=== PATIENT | male | born 1935 | race Caucasian/White ===

== ENCOUNTER 2016-10-29 11:51 | Outpatient (CLI) | payer OTHER | END 2016-10-29 11:52 | LOC: CARD 11:51 | PROVIDERS: ATTEND Internal Medicine Cardiovascular Disease | DX: I25.10 Atherosclerotic heart disease of native coronary artery without angina pectoris (principal); I10 Essential (primary) hypertension; E78.5 Hyperlipidemia, unspecified; I48.91 Unspecified atrial fibrillation; Z95.810 Presence of automatic (implantable) cardiac defibrillator | CPT/HCPCS: G0463 ==

== ENCOUNTER 2016-12-03 14:42 | Outpatient (CLI) | payer OTHER | END 2016-12-03 14:43 | LOC: CARD 14:42 | PROVIDERS: ATTEND Internal Medicine Cardiovascular Disease | DX: I25.10 Atherosclerotic heart disease of native coronary artery without angina pectoris (principal); I10 Essential (primary) hypertension; E78.5 Hyperlipidemia, unspecified; Z79.899 Other long term (current) drug therapy | CPT/HCPCS: G0463 ==

== ENCOUNTER 2016-12-17 15:28 | Outpatient (CLI) | payer OTHER ==
[2016-12-17 15:48] LABS: MEAN CORPUSCULAR HEMOGLOBIN 28.8 pg (28.0-34.0)
[2016-12-17 16:21] LABS: eGFR (African) 37; eGFR (Non-African) 31
[2016-12-17 16:25] LABS: SEGMENTED NEUTROPHILS % 62 % (39-79)
[2016-12-17 16:26] LABS: BASOPHILS % 2 % (0-2); MONOCYTES % 2 % (0-11)
[2016-12-19 08:04] LABS: ADENOVIRUS F 40/41 Not Detected (Not Detected); ASTROVIRUS Not Detected (Not Detected); C. DIFFICILE (TOXIN A/B) Not Detected (Not Detected); CRYPTOSPORIDIUM Not Detected (Not Detected); CYCLOSPORA CAYETANENSIS Not Detected (Not Detected); ENTAMOEBA HISTOLYTICA Not Detected (Not Detected); GIARDIA LAMBLIA Not Detected (Not Detected); ROTAVIRUS A Not Detected (Not Detected); SAPOVIRUS Not Detected (Not Detected); VIBRIO CHOLERAE Not Detected (Not Detected)
== END 2016-12-17 15:30 ==
LOC: LAB 15:28
PROVIDERS: ATTEND Physician Assistant
DX: R19.7 Diarrhea, unspecified (principal)
CPT/HCPCS: 36415; 80053; 85025; 87507

== ENCOUNTER 2017-01-15 11:56 | Outpatient (CLI) | payer OTHER ==
[2017-01-15 12:37] LABS: eGFR (African) 44; eGFR (Non-African) 37
== END 2017-01-15 12:05 ==
LOC: LAB 11:56
DX: E78.00 Pure hypercholesterolemia, unspecified (principal); Z51.81 Encounter for therapeutic drug level monitoring
CPT/HCPCS: 36415; 80053; 80061; 80162

== ENCOUNTER 2017-12-09 12:30 | Outpatient (CLI) | payer OTHER ==
[2017-10-01 18:19] VITALS: BP 114/68
== END 2017-12-09 12:32 ==
LOC: CARD 12:30
PROVIDERS: ATTEND Internal Medicine Cardiovascular Disease
DX: I25.10 Atherosclerotic heart disease of native coronary artery without angina pectoris (principal); Z95.2 Presence of prosthetic heart valve; I10 Essential (primary) hypertension; E78.00 Pure hypercholesterolemia, unspecified; Z79.899 Other long term (current) drug therapy; Z86.79 Personal history of other diseases of the circulatory system
CPT/HCPCS: 36415; 84443; G0463

== ENCOUNTER 2018-03-17 08:39 | Outpatient (CLI) | payer OTHER ==
[2017-10-01 18:19] VITALS: BP 114/68
[2018-03-17 09:24] LABS: BASOPHILS % 0.5 (0.0-1.5); EOSINOPHILS % 0.9 % (0.0-6.8); MEAN CORPUSCULAR HEMOGLOBIN 26.7 pg (28.0-34.0); MEAN CORPUSCULAR VOLUME 86.6 fl (80.0-100.0); MONOCYTES % 5.9 % (0.0-11.0); NEUTROPHILS # 3.5 # k/uL (1.4-7.7)
[2018-03-17 09:54] LABS: eGFR (African) > 60; eGFR (Non-African) 56
--- NOTE | 2018-03-17 10:37 | Diagnostic Imaging Report ---
VICKIE RODARTE [facility] [address] [facility].[address] [address] Report Submission Date: Mar 17, 2018 10:22:54 AM CDT Patient Study Name: ALEXANDREA QUESADA Date: Mar 17, 2018 9:18:35 AM CDT Modality Type: US Gender: M Description: BLEA : 39 Institution: [facility] Physician: VICKIE RODARTE Examination: Ultrasound arterial History: ARTERIAL DISEASE Comparison exams: None available Findings: Sonographic evaluation of the lower extremity arterial system from the groin to the distal extremities bilaterally demonstrates normal biphasic and triphasic waveforms. Peak right arterial systolic velocity of 80.9 cm/s. Peak left arterial systolic velocity of 99,2 cm/s. Impression No reduction to hemodynamic flow. No evidence for occlusive plaque. Electronically signed on Mar 17, 2018 10:22:54 AM CDT by: Yuval BRITTON
--- NOTE | 2018-03-17 10:38 | Diagnostic Imaging Report ---
VICKIE RODARTE [facility] [address] [facility].[address] [address] Report Submission Date: Mar 17, 2018 10:26:43 AM CDT Patient Study Name: ALEXANDREA QUESADA Date: Mar 17, 2018 10:04:23 AM CDT Modality Type: DX Gender: M Description: LOWER EXTREMITY : 37 Institution: [facility] Physician: VICKIE RODARTE Examination: Plain film left foot History: OSTEOMYELITIS; INJURY TO 2ND DIGIT ON LEFT FOOT (Hx) Findings: 3 views of the left foot demonstrates generalized osteopenia. Articular degenerative changes. Foreshortening/resorption of the distal aspect of the proximal phalanx 2nd digit. Calcaneal spurs. No soft tissue swelling. No joint effusion. Impression: Osteopenia and degenerative changes. 2nd digit posttraumatic versus postsurgical versus infections etiology. If suspect osteomyelitis, consider obtaining MRI to further evaluate. Electronically signed on Mar 17, 2018 10:26:43 AM CDT by: Yuval BRITTON
== END 2018-03-17 08:40 ==
LOC: RAD 08:39
PROVIDERS: ATTEND Podiatrist Foot & Ankle Surgery
DX: L03.039 Cellulitis of unspecified toe (principal); M20.42 Other hammer toe(s) (acquired), left foot; S91.109A Unspecified open wound of unspecified toe(s) without damage to nail, initial encounter; I73.9 Peripheral vascular disease, unspecified
CPT/HCPCS: 36415; 73630; 80053; 85025; 85651; 86141; 93925

== ENCOUNTER 2018-04-27 13:51 | Outpatient (CLI) | payer OTHER ==
[2017-10-01 18:19] VITALS: BP 114/68
--- NOTE | 2018-04-28 08:12 | OP Clinic Progress Note ---
SUBJECTIVE: Chacho Peterson is an 83-year-old male who was seen today for follow up of a left 2nd toe wound. The patient was seen just over 2 weeks ago and had evidence of a healed wound with very fragile healing skin that had epithelized at that time. He was seen today to make sure that this was continuing to stay healed. Patient presented with a worker from the facility he is from. The patient is also here to discuss results of the recent [facility] white blood cell labeled bone scan. The patient expresses frustration with how much time the exam took and is anxious to know what the results are at this time. The patient states that he has run out of/lost the toe pads that he was using previously for his left 2nd toe to protect it. He is now utilizing a shoe that he has at home that is his. This is not a surgical shoe. The patient does not admit to any fevers, chills, nausea, vomiting, shortness of breath, or chest pain at this time. The patient is wanting to discuss possible surgical options. OBJECTIVE: Vascular Exam: Palpable DP and PT pulses of the left foot. Capillary refill time was less than 3 seconds to the toes of the left foot. No edema of the left foot. Musculoskeletal Exam: No pain on palpation noted to the left foot or toes. There is obvious dorsal contracture at the metatarsophalangeal joint of the 2nd and 3rd toes with plantar flexion deformity noted at the distal interphalangeal joint of the 2nd and 4th toes and slight plantar flexion contracture at the left 2nd, 3rd, and 4th toes with the forefoot loaded. The DIPJ is fairly rigid with inability to reduce with the forefoot loaded at the 2nd and 4th toes where the significant contraction is noted. He is also unable to reduce completely with the forefoot loaded at the 2nd metatarsophalangeal joint. It should be noted that the 3rd and 4th toes underride the 2nd and 3rd toes with some adductovarus deformity of the 5th toe being minimal. The patient also has hallux abducto valgus deformity of the left great toe, which is underriding the 2nd toe. No other gross abnormalities noted at this time. Dermatologic Exam: Left 2nd toe dorsal DIPJ wound is stilled healed with no evidence of hyperkeratosis or open wound. It is healing beautifully and has very minimal redness underneath the slightly fragile skin where the healing is continuing. This wound has healed completely and is continuing to do well. There is no erythema or open lesions elsewhere. There is no hyperkeratosis or open lesion on the other toes at this time. Neurological Exam: Light touch sensation is absent at the level of the toes of the left foot. DIAGNOSTIC STUDIES: The results of the white blood cell labeled bone scan were discussed with the patient. The patient understood as I explained that the preliminary results were concerning for osteomyelitis to the left 2nd toe; however, the final results of the white blood cell labeled scan demonstrated no evidence of osteomyelitis in the left 2nd toe. The patient is thrilled to know this information and understands that I am still slightly concerned that not all tests are accurate and that there is a small possibility that there is infection in the bone but that we will trust that the exam, which is a great exam for checking osteomyelitis, is accurate at this time. The patient is happy with this at this time. ASSESSMENT: Left 2nd toe wound, healed. PLAN: A long discussion was had with the patient discussing going forward with conservative treatment with padding and protection and occasional debridement of callus as needed to the left 2nd toe versus surgical correction with hammertoe procedure. Further discussion was had regarding the need to do more than just a hammertoe procedure of the 2nd toe but also a bunion procedure of the 1st metatarsophalangeal joint, as well as hammertoes of the 3rd and 4th and possibly 5th toes, as all of the toes are in the way of each other, being able to bring down the 2nd toe. The patient understands that this is likely what needs to happen, and we discussed some of the details of surgery but more can be discussed at a later time. The patient was sent to the [facility] to bead picker some more toe pads for his left 2nd toe to use at home and a note was given to take back to the facility he is at to make sure that he is wearing the toe pads at all times on that left 2nd toe to protect it. The patient will return to the clinic in 3 weeks to discuss further possible surgical correction of the bunion, as well as hammertoes 2, 3, 4 and possibly 5, some of which will include DIPJ and some proximal interphalangeal joint and some metatarsophalangeal joint correction. A more detailed exam will also be described at the upcoming appointment if we are to prepare for surgery. The patient understands that we are working on trying to gather the rest of the materials we need at the hospital in order to be able to do surgery and a few weeks will help us make sure that his toe is well healed and that it buys us appropriate time to gather what we need to. The patient has no other questions or concerns at this time and is grateful for the results and discussion about surgical versus conservative plan. The patient states specifically that he is leaning towards the surgical plan at this time and we will discuss it further at our next appointment. There was no procedure done on this patient. cc: Dr. Peyman BRITTON
== END 2018-04-27 13:53 ==
LOC: POD 13:51
PROVIDERS: ATTEND Podiatrist Foot & Ankle Surgery
DX: S91.105A Unspecified open wound of left lesser toe(s) without damage to nail, initial encounter (principal); X58.XXXA Exposure to other specified factors, initial encounter; Y93.9 Activity, unspecified; Y92.9 Unspecified place or not applicable; Y99.9 Unspecified external cause status
CPT/HCPCS: 99213; G0463

== ENCOUNTER 2018-09-30 08:56 | Inpatient (IN) | payer OTHER ==
[2018-09-30] MEDS ORDERED: IPRATROPIUM/ALBUTEROL SULFATE 3 ML AMPUL.NEB NEB STA (09:03)
--- NOTE | 2018-09-30 09:14 | ED Physician Documentation ---
Dyspnea - HISTORIAN Historian: patient - HPI Chief Complaint: Wheezing Onset: hours Duration: continues in ED Initiating Event: upper respiratory illness Severity: moderate Exacerbated By: coughing Further Comments: yes (83 year old male patient sent in from [place] with Sat of 68% on 4L this morning. Staff reports increased SOB and cough for the past few days; worse this morning. Patient finished Ceftin on 09/24/2018. Patient is a poor historian. Difficult to assess onset of symptoms. Likely more than 48 hours ago. Low saturations onset today.) - ROS CONST: recent illness (ceftin completed 09/24), weakness EYES/ENT: none GI/: none NEURO/PSYCH: denies: headache MS/SKIN/LYMPH: none - PAST HX Lung Disease: none Cardiac Disease: CAD, A-Fib, other (HLD) Surgeries/Procedures: other (PPM, cataract, PCI with stent, Right hip replacement, Total knee - right) Other History: other (BPH, GERD, CKD, OA, on Eliquis for AFib) Allergies/Adverse Reactions: Allergies Allergy/AdvReac Type Severity Reaction Status Date / Time No Known Drug Allergies Allergy Verified 09/30/18 11:12 Home Medications: Ambulatory Orders Medication Instructions Recorded Polyethylene Glycol 3350 [Miralax] 17 gm PO D 10/01/17 Acetaminophen [Tylenol] 650 mg PO Q6H PRN 09/30/18 Ibuprofen [Ibu] 400 mg PO TID 09/30/18 Latanoprost/Pf [Latanoprost 0.005% 1 drop OP HS 09/30/18 Eye Drop] Mag Hydrox/Aluminum Hyd/Simeth 30 ml PO D PRN 09/30/18 [Mylanta] Magnesium Hydroxide [Milk of 2,400 mg PO D PRN 09/30/18 Magnesia] Nitroglycerin [Nitrostat] 0.3 mg SL Q5M PRN 09/30/18 - SOCIAL HX Smoking History: non-smoker - FAMILY HX Family History: denies: none - VITAL SIGNS Vital Signs: Vital Signs Temp Pulse Resp BP Pulse Ox 114/68 10/01/17 18:18 - REVIEWED ASSESSMENTS Nursing Assessment Reviewed: Yes Vitals Reviewed: Yes Progress - Progress Progress: Lab and xray results reviewed with patient. Positive for influenza. Chest xray with right LL pneumonia and early LLL pneumonia. CrCl 53 - levaquin started. [address] Garcia, will admit to med surg. Repeat lab and chest xray in the morning. ED Results Lab/Radiology - Orders Orders: ED Orders Category Date Time Status Place IV Lock 1T Care 09/30/18 09:02 Active CHEST 1VIEW [RAD] Stat Exams 09/30/18 09:02 Ordered CBC/PLATELET/DIFF Stat Lab 09/30/18 09:02 Ordered CMP Stat Lab 09/30/18 09:02 Ordered INFLUENZA A&B Stat Lab 09/30/18 09:08 Uncollected LACTATE Stat Lab 09/30/18 09:02 Ordered UA W/MICRO IF INDICATED Stat Lab 09/30/18 09:02 Ordered Ipratropium/Albuterol Sulfate [Duoneb] Med 09/30/18 09:03 Discontinued 3 ml NEB STAT STA Dyspnea Physical Exam - EXAM General Appearance: moderate distress EENT: eye inspection normal, ENT inspection normal, pharynx normal, no signs of dehydration, DUNCAN, no nystagmus, TM's nml Respiratory: no pain on inspiration, accessory muscle use, decreased air movement (bases; right lower lobe worse than left. ) CVS: reg. rate & rhythm, no murmur, no gallop, no friction rub, pulses full, pulses equal Abdomen: non-tender, no organomegaly, no distention, no ascites Skin: no rash, pallor, warm, nml palp., dry Extremities: non-tender, normal range of motion, no evidence of injury, no edema, J, LOOP CUTTER Neuro/Psych: oriented x3, CN's nml as tested, motor nml, sensation nml, mood/affect nml Discharge Clincal Impression: Influenza B, Elevated LFTs Right lower lobe pneumonia Qualifiers: Pneumonia type: due to unspecified organism Qualified Code(s): J18.1 - Lobar pneumonia, unspecified organism Left lower lobe pneumonia Qualifiers: Pneumonia type: due to unspecified organism Qualified Code(s): J18.1 - Lobar pneumonia, unspecified organism Anemia Qualifiers: Anemia type: unspecified type Qualified Code(s): D64.9 - Anemia, unspecified Condition: Stable Disposition: 01 HOME, SELF-CARE Decision to Admit: NO Decision Time: 13:10
[2018-09-30 09:25] LABS: BASOPHILS % 0.4 (0.0-1.5); EOSINOPHILS % 2.1 % (0.0-6.8); MEAN CORPUSCULAR HEMOGLOBIN 21.1 pg (28.0-34.0); MONOCYTES % 5.6 % (0.0-11.0); NEUTROPHILS # 14.6 # k/uL (1.4-7.7)
[2018-09-30 09:31] LABS: eGFR (Non-African) > 60
[2018-09-30] MEDS ORDERED: LEVOFLOXACIN IN DEXTROSE 5 % 250 MG/50 ML BAG IV ONE (10:04)
[2018-09-30] MEDS ORDERED: LEVOFLOXACIN IN DEXTROSE 5 % 500 MG/100 ML BAG IV ONE (10:04)
[2018-09-30 10:26] LABS: COLOR,URINE YELLOW (YELLOW)
[2018-09-30 10:27] LABS: APPEARANCE,URINE CLOUDY (CLEAR); OCCULT BLOOD,URINE 2+ (NEGATIVE)
[2018-09-30 13:44] VITALS: BMI 25.5
--- NOTE | 2018-09-30 14:05 | Diagnostic Imaging Report ---
SHILA RUEDA (TRUCK DISPATCHER) - ER [facility] [address] [facility].[address] [address] Report Submission Date: Sep 30, 2018 9:59:54 AM DIP STAND LOADER Patient Study Name: ALEXANDREA QUESADA Date: Sep 30, 2018 9:12:31 AM DIP STAND LOADER Modality Type: DX Gender: M Description: CHEST 1VIEW : 39 Institution: [facility] Physician: SHILA RUEDA (TRUCK DISPATCHER) - ER Examination: Portable chest History: Evaluate lungs SOA, COUGH Comparison exam: None provided. Findings: Single view of the chest demonstrates a prominent cardiac silhouette. Bilateral parenchymal haziness, right greater than left. Blunting of the bases. Left-sided cardiac pacemaker. Advanced articular degenerative changes. Impression: Right and left parenchymal haziness and basilar effusions. Electronically signed on Sep 30, 2018 9:59:54 AM DIP STAND LOADER by: Yuval BRITTON
[2018-09-30] MEDS: IPRATROPIUM/ALBUTEROL SULFATE 3 ML AMPUL.NEB NEB SCH ×3 (14:10→20:12)
[2018-09-30] MEDS ORDERED: MAGNESIUM HYDROXIDE 2,400 MG/30 ML UDC PO PRN (14:56)
[2018-09-30] MEDS ORDERED: MAG HYDROX/ALUMINUM HYD/SIMETH 30 ML UDC PO PRN (14:56)
[2018-09-30] MEDS: AMIODARONE HCL 200 MG TABLET PO SCH (15:53)
[2018-09-30] MEDS ORDERED: IBUPROFEN 200MG/10ML ORAL SUSPENSION CUP PO PRN (18:07)
[2018-09-30] MEDS ORDERED: NITROGLYCERIN 0.4 MG TAB.SUBL SL PRN (18:08)
--- NOTE | 2018-09-30 18:14 | History and Physical Report ---
History of Present Illnes - History of Present Illness Reason for Visit: dyspnea History of Present Illness: Patient is and 83-year-old white male who states he is not been doing well for some time. Patient did is been having increasing breathing difficulties also does not have a history of COPD or asthma. Over the last 3 to 4 days breathing has become a lot worse. Patient started developed some congestion and cough. Patient was noted to have a fever associated with some chills. Patient jackson bsequently seen in the ED. In the ED patient was found to have influenza B with probable exacerbation of COPD with bronchitis. Patient is also noted to be anemic with the hemoglobin of 7.9. He stool guaic done on admission on the floor was positive. Patient does have a history of atrial fibrillation and has been on eloquence for anticoagulation therapy. Patient also has osteoarthritis and has been taking nonsteroidal anti-inflammatory medication for this. Patient was admitted to the hospital for further care and evaluation. - Past Medical History Cardiac: AFIB, CAD, Hyperlipidemia Gastrointestinal: GERD Rheumatologic: Gout Renal/: Chronic renal failure (stage 4) - Past Surgical History Past Surgical History: Cataract Removal, Total Hip Replacement (right), Total Knee Replacement (right), Tonsillectomy, Other (PCI w stent, pacemaker p lacement, ) - Past Family History Mother Family History: (84yo), Other (advanced age) Father Family History: Cancer, (81), Other (COPD) - Past Social History Smoke: # pack years (50), Quit (>5 years) Alcohol: None Drugs: None Lives: Residential ([facility]) Domestic Violence: Negative - Health Maintenance Health Maintenance: Influenza Vaccine. denies: Pneumococcal Vaccine Influenza Vaccine: Current for this Influenza Season Pneumonia Vaccine: No Resuscitation Status: Resusciation Status Resuscitation Status Do Not Resuscitate - Unable to Obtain History Unable to Obtain: No Review of Systems - Review of Systems Constitutional: Fever, Chills, Weakness Eyes: negative: pain, vision change, conjunctivae inflammation ENT: negative: Ear Pain, Ear Discharge, Nose Pain, Nose Discharge, Nose Congestion, Mouth Pain, Throat Pain Respiratory: Cough, Dry, Shortness of Breath, SOB with Excertion. negative: Pleuritic Pain Cardiovascular: Paroxysmal Noc. Dyspnea, Edema. negative: Chest Pain, Palpitations, Orthopnea Gastrointestinal: Constipation. negative: Nausea, Vomiting, Abdominal Pain, Diarrhea, Melena, Hematochezia Genitourinary: Retention (? some diffuculties with urination). negative: Dysuria, Frequency, Incontinence Musculoskeletal: negative: Neck Pain, Shoulder Pain Skin: negative: Rash, Lesions Neurological: negative: Weakness, Numbness, Incoordination - Medications/Allergies Allergies/Adverse Reactions: Allergies Allergy/AdvReac Type Severity Reaction Status Date / Time No Known Drug Allergies Allergy Verified 09/30/18 11:12 Home Medications: Home Medications Acetaminophen [Tylenol] 650 mg PO Q6H PRN 09/30/18 Ibuprofen [Ibu] 400 mg PO TID 09/30/18 Latanoprost/Pf [Latanoprost 0.005% Eye Drop] 1 drop OP HS 09/30/18 Mag Hydrox/Aluminum Hyd/Simeth [Mylanta] 30 ml PO D PRN 09/30/18 Magnesium Hydroxide [Milk of Magnesia] 2,400 mg PO D PRN 09/30/18 Nitroglycerin [Nitrostat] 0.3 mg SL Q5M PRN 09/30/18 Current Inpatient Medications: Current Inpatient Medications Acetaminophen (Tylenol Extra Strength) 500 mg PO Q4H PRN PRN Reason: Fever >101 Al Hydrox/Mg Hydrox/Simethicone (Mylanta) 30 ml PO DAILY PRN PRN Reason: indigestion Al Hydroxide/Mg Hydroxide (Milk Of Magnesia) 2,400 mg PO DAILY PRN PRN Reason: Constipation Albuterol/Ipratropium (Duoneb) 3 ml NEB QID [facility] Last Admin: 09/30/18 17:47 Dose: 3 ml Amiodarone HCl (Pacerone) 200 mg PO QDAY [facility] Last Admin: 09/30/18 15:53 Dose: 200 mg Apixaban (Eliquis) 5 mg PO BID [facility] Atorvastatin Calcium (Lipitor) 10 mg PO DAILY [facility] Digoxin (Lanoxin) 125 mcg PO D [facility] Docusate Sodium (Colace) 100 mg PO BID [facility] Doxazosin Mesylate (Cardura) 2 mg PO DAILY [facility] Finasteride (Proscar) 5 mg PO DAILY [facility] Ibuprofen (Advil Soln) 400 mg PO Q6H PRN PRN Reason: pain Latanoprost (Xalatan) 1 drop OP [facility] Levofloxacin/Dextrose (Levaquin) 250 mg IV 1000 [facility] Stop: 10/15/18 09:59 Levofloxacin/Dextrose (Levaquin) 500 mg IV DAILY [facility] Stop: 10/15/18 08:59 Miscellaneous (Chem Sticks) 1 each MC CHEMQ [facility] Last Admin: 09/30/18 09:00 Dose: 1 each Nitroglycerin (Nitroquick) 0.4 mg SL Q5M PRN PRN Reason: Chest Pain Pneumococcal 13-Valent Conj Vacc (Prevnar 13 Syringe) 0.5 ml IM 1T ONE Stop: 10/01/18 10:01 Polyethylene Glycol (Miralax) 17 gm PO DAILY [facility] Propranolol HCl (Inderal) 10 mg PO DAILY [facility] Sodium Chloride (Normal Saline Flush) 3 ml IV BID [facility] Exam - Exam Vital Signs: Vital Signs (72 hours) 09/30/18 09/30/18 09/30/18 08:56 13:10 13:18 Temperature 96.8 F L 97.1 F L Pulse Rate [ 84 84 Apical] Pulse Rate [ 71 72 Right] Respiratory 28 H 23 26 H Rate Blood Pressure 99/58 [Left Arm] Blood Pressure 101/48 81/50 [Right Arm] O2 Sat by Pulse 94 98 93 Oximetry 09/30/18 09/30/18 09/30/18 13:32 13:36 18:00 Temperature 97.1 F L 97.1 F L Pulse Rate [ Apical] Pulse Rate [ 72 72 Right] Respiratory 26 H 26 H Rate Blood Pressure [Left Arm] Blood Pressure 81/50 81/50 [Right Arm] O2 Sat by Pulse 93 92 Oximetry General: Alert, Oriented to Person, Oriented to Place, Cooperative, Moderate distress. No: Oriented to Time HEENT: Atraumatic, PERRLA, Edentulous, Decreased Hearing Acuity Neck: No: Stridor, Rigidity, Normal Range of Motion Carotids: WNL Thyroid: WNL Lungs: Normal air movement, Speaks full Sentences, Respiratory Distress, Rales, Rhonchi (scattereed) Cardiovascular: Regular rate, Normal S1, Normal S2, No murmurs Abdomen: Normal bowel sounds, Soft, No tenderness, No hepatospenomegaly, No masses, Other (stool guiac positive) Integumentary: Normal, [place], Warm, Dry Extremities: No clubbing, No cyanosis, No edema Neurological: Normal speech, Strength Equal Bilat, Normal tone, Sensation intact, Cranial nerves 3-12 NL Psych/Mental Status: Mood NL, Appropriate Affect - Laboratory Results Laboratory Results: Laboratory Results 09/30/18 09/30/18 09/30/18 09:02 09:02 09:20 WBC 17.30 H RBC 3.73 L Hgb 7.9 L Hct 25.9 L MCV 69.0 L MCH 21.1 L MCHC 30.5 RDW 18.4 H Plt Count 268 Neut % (Auto) 84.7 H Lymph % (Auto) 7.2 L [place] % (Auto) 5.6 Eos % (Auto) 2.1 Baso % (Auto) 0.4 Neut # (Auto) 14.6 H Lymph # (Auto) 1.2 [place] # (Auto) 1.0 H Eos # (Auto) 0.4 Baso # (Auto) 0.1 Sodium 138 Potassium 3.7 Chloride 106 Carbon Dioxide 27 BUN 31 H Creatinine 1.23 Estimated Creat Clear 55 Est GFR ( Amer) > 60 Est GFR (Non-Af Amer) > 60 Glucose 121 H Lactate 1.6 Calcium 7.6 L Total Bilirubin 1.1 AST 93 H ALT 80 H Alkaline Phosphatase 146 H Total Protein 5.7 L Albumin 2.3 L Urine Color Urine Appearance Urine pH Ur Specific [place] Urine Protein Urine Ketones Urine Occult Blood Urine Nitrite Urine Bilirubin Urine Urobilinogen Ur Leukocyte Esterase Urine Glucose Influenza Type A Ag Negative Influenza Type B Ag Positive H 09/30/18 09:20 WBC RBC Hgb Hct MCV MCH MCHC RDW Plt Count Neut % (Auto) Lymph % (Auto) [place] % (Auto) Eos % (Auto) Baso % (Auto) Neut # (Auto) Lymph # (Auto) [place] # (Auto) Eos # (Auto) Baso # (Auto) Sodium Potassium Chloride Carbon Dioxide BUN Creatinine Estimated Creat Clear Est GFR ( Amer) Est GFR (Non-Af Amer) Glucose Lactate Calcium Total Bilirubin AST ALT Alkaline Phosphatase Total Protein Albumin Urine Color Yellow Urine Appearance Cloudy Urine pH 6.0 Ur Specific [place] 1.025 Urine Protein 1+ H Urine Ketones Negative Urine Occult Blood 2+ H Urine Nitrite Negative Urine Bilirubin 1+ H Urine Urobilinogen 1.0 Ur Leukocyte Esterase Negative Urine Glucose Negative Influenza Type A Ag Influenza Type B Ag Assessment/Plan - Assessment/Plan (1) Right lower lobe pneumonia Status: Acute Current Visit: Yes Qualifiers: Pneumonia type: due to unspecified organism Qualified Code(s): J18.1 - Lobar pneumonia, unspecified organism Assessment: IV antibiotics, DuoNeb, supportive care. Patient on supplemental oxygen (2) Left lower lobe pneumonia Status: Acute Current Visit: Yes Qualifiers: Pneumonia type: due to unspecified organism Qualified Code(s): J18.1 - L obar pneumonia, unspecified organism Assessment: IV antibiotics, DuoNeb, supportive care. Patient on supplemental oxygen (3) Influenza B Status: Acute Current Visit: Yes Assessment: will start tamiflu (4) Anemia Status: Acute Current Visit: Yes Qualifiers: Anemia type: unspecified type Qualified Code(s): D64.9 - Anemia, unspecified Assessment: stool guiac positive, Hgb 11.6 in February, will monitor, may need to transfuse (5) GI bleeding Status: Acute Current Visit: Yes (6) BPH (benign prostatic hyperplasia) Status: Acute Current Visit: Yes (7) PVD (peripheral vascular disease) Status: Acute Current Visit: Yes (8) CAD (coronary artery disease) Status: Acute Current Visit: Yes (9) Atrial fibrillation Status: Chronic Current Visit: Yes Qualifiers: Atrial fibrillation type: paroxysmal Qualified Code(s): I48.0 - Paroxysmal atrial fibrillation Assessment: appears to be in NSR at this time, will stop anticoagualtion due to low Hgb and postive stool for blood (10) Generalized OA Status: Chronic Current Visit: Yes Assessment: Has been on NSAID but will stop due to GI bleeding VTE Assessment - RISK FACTOR SCORE VTE RISK FACTOR SCORES: AGE OVER 60 YEARS, ACUTE INFECTION OTHER THEN SEPSIS, ACUTE RESPIRATORY FAILURE/SEVERE COPD - RISK VTE HIGH RISK: SCORE OF 3-4 (RISK PROXIMAL DVT 4-8%) PROPHYLAXIS NEEDED (anticoaluglation D/C due to GI bleeding)
[2018-09-30] MEDS ORDERED: IBUPROFEN 400 MG TABLET PO PRN (18:15)
[2018-09-30] MEDS ORDERED: IBUPROFEN 200 MG TABLET PO ONE (18:16)
[2018-09-30] MEDS ORDERED: IBUPROFEN 400 MG TABLET PO ONE (18:29)
[2018-09-30] MEDS: OSELTAMIVIR PHOSPHATE 75 MG CAPSULE PO SCH (20:11)
[2018-09-30] MEDS: SALINE FLUSH 10 ML DISP.SYRIN IV SCH (20:11)
[2018-09-30] MEDS ORDERED: PANTOPRAZOLE SODIUM INJ. 40 MG VIAL ONE ×2 (20:13→20:16)
[2018-09-30] MEDS: DOCUSATE SODIUM 100 MG CAPSULE PO SCH (20:14)
[2018-09-30] MEDS ORDERED: 0.9 % SODIUM CHLORIDE 50 ML IV ONE (20:20)
[2018-09-30] MEDS ORDERED: 0.9 % SODIUM CHLORIDE 250 ML IV ONE (20:24)
[2018-09-30] MEDS: PANTOPRAZOLE SODIUM 80 MG in 0.9 % SODIUM CHLORIDE 50 ML IV SCH (20:56)
[2018-09-30] MEDS ORDERED: APIXABAN 2.5 MG TABLET PO SCH (21:00)
[2018-09-30] MEDS: LATANOPROST 0.005% OPTH DROP OP SCH (23:39)
[2018-10-01] MEDS: ACETAMINOPHEN 500 MG TABLET PO PRN ×2 (00:32→05:39)
[2018-10-01] MEDS ORDERED: PANTOPRAZOLE SODIUM INJ. 40 MG VIAL ONE (04:35)
[2018-10-01] MEDS: IPRATROPIUM/ALBUTEROL SULFATE 3 ML AMPUL.NEB NEB SCH ×6 (05:40→21:12)
[2018-10-01] MEDS ORDERED: FUROSEMIDE 20 MG/2 ML VIAL IVP ONE ×2 (06:10→13:32)
[2018-10-01] MEDS: PANTOPRAZOLE SODIUM 80 MG in 0.9 % SODIUM CHLORIDE 50 ML IV SCH ×2 (06:25→20:52)
[2018-10-01 07:04] LABS: BASOPHILS % 0.4 (0.0-1.5); EOSINOPHILS % 1.3 % (0.0-6.8); MEAN CORPUSCULAR HEMOGLOBIN 21.4 pg (28.0-34.0); NEUTROPHILS # 11.9 # k/uL (1.4-7.7)
[2018-10-01 07:38] LABS: eGFR (Non-African) > 60
[2018-10-01] MEDS ORDERED: ATORVASTATIN CALCIUM 20 MG TABLET PO ONE (08:08)
[2018-10-01] MEDS ORDERED: OSELTAMIVIR PHOSPHATE 75 MG CAPSULE PO ONE (08:08)
[2018-10-01] MEDS ORDERED: PROPRANOLOL HCL 20 MG TABLET PO ONE (08:09)
[2018-10-01] MEDS ORDERED: ACETAMINOPHEN 500 MG TABLET PO ONE (08:20)
[2018-10-01] MEDS ORDERED: diphenhydrAMINE HCL 25 MG TABLET PO ONE (08:22)
[2018-10-01] MEDS: POLYETHYLENE GLYCOL 3350 17 GM POWD.PACK PO SCH (09:27)
[2018-10-01] MEDS: AMIODARONE HCL 200 MG TABLET PO SCH ×2 (09:27→09:38)
[2018-10-01] MEDS: ATORVASTATIN CALCIUM 20 MG TABLET PO SCH (09:28)
[2018-10-01] MEDS: OSELTAMIVIR PHOSPHATE 75 MG CAPSULE PO SCH ×2 (09:28→20:52)
[2018-10-01] MEDS: DOCUSATE SODIUM 100 MG CAPSULE PO SCH ×2 (09:29→20:52)
[2018-10-01] MEDS: FINASTERIDE 5 MG TABLET PO SCH (09:29)
[2018-10-01] MEDS: DIGOXIN 125 MCG TABLET PO SCH (09:32)
[2018-10-01] MEDS: LEVOFLOXACIN IN DEXTROSE 5 % 500 MG/100 ML BAG IV SCH (09:33)
[2018-10-01] MEDS: SALINE FLUSH 10 ML DISP.SYRIN IV SCH ×2 (09:33→20:52)
[2018-10-01] MEDS: DOXAZOSIN MESYLATE 2 MG TABLET PO SCH (09:34)
[2018-10-01] MEDS: PROPRANOLOL HCL 20 MG TABLET PO SCH (09:35)
[2018-10-01] MEDS ORDERED: PNEUMOC 13-VAL CONJ-DIP CRM/PF 0.5 ML DISP.SYRIN IM ONE (10:00)
[2018-10-01] MEDS: LEVOFLOXACIN IN DEXTROSE 5 % 250 MG/50 ML BAG IV SCH (10:58)
[2018-10-01] MEDS ORDERED: 0.9 % SODIUM CHLORIDE 250 ML IV ONE (11:04)
[2018-10-01] MEDS ORDERED: methylPREDNISolone SOD SUCC 125 MG/2 ML VIAL IVP ONE (15:27)
[2018-10-01] MEDS ORDERED: FUROSEMIDE 40 MG/4 ML VIAL IVP ONE (15:27)
[2018-10-01] MEDS: LATANOPROST 0.005% OPTH DROP OP SCH (20:52)
[2018-10-02] MEDS: IPRATROPIUM/ALBUTEROL SULFATE 3 ML AMPUL.NEB NEB SCH ×6 (01:17→22:00)
[2018-10-02] MEDS: PANTOPRAZOLE SODIUM 80 MG in 0.9 % SODIUM CHLORIDE 50 ML IV SCH ×3 (06:44→18:09)
--- NOTE | 2018-10-02 07:00 | Inpatient Progress Note ---
Subjective - Required Recertification Statement I anticipate X number of days because-include discharge plan: 3 days - Review of Systems Events since last encounter: Patient remained short of breath. Patient has been hating well. Patient no on a mask at 10 L. Patient is not complain of any pain anywhere. Patient denies any chest pain or chest pressure. Patient has a mild nonproductive cough. Hemoglobin has dropped to 7.1. Patient is a little bit more tachycardic. General: Denies: Chills HEENT: Denies: Head Aches, Post Nasal Drip Pulmonary: Dyspnea, Cough Cardiovascular: Denies: Chest Pain, Palpitations Gastrointestinal: Denies: Nausea, Vomiting, Abdominal Pain, Diarrhea, Constipation Objective - Exam Vitals and I&O: Vital Signs Temp 97.8 F 10/02/18 06:00 Pulse 74 10/02/18 06:00 Resp 22 10/02/18 06:00 BP 110/54 10/02/18 06:00 Pulse Ox 83 L 10/02/18 06:00 Intake & Output 10/01/18 10/01/18 10/02/18 11:59 23:59 11:59 Intake Total 580 616 Output Total 300 1325 700 Balance 280 -170 -700 Intake: IV 100 120 Left Wrist 100 120 Oral 480 220 Blood Product 276 Output: Urine 300 1325 700 Other: Voiding Method Indwelling Catheter Indwelling Catheter Indwelling Catheter # Bowel Movements 1 General: Alert, Oriented to Person, Oriented to Place, Cooperative, Moderate distress. No: Oriented to Time Neck: Supple, Other (mild JVD) Lungs: Speaks full Sentences, Respiratory Distress, Wheezes, Rales Cardiovascular: Regular rate, Normal S1, Normal S2, No murmurs Abdomen: Normal bowel sounds, Soft, No tenderness, No hepatospenomegaly, No masses Skin: Normal, [place], Warm, Dry Neurological: Normal gait Psych/Mental Status: Mental status NL, Mood NL, Appropriate Affect, Intact Judgment - Results Results: Laboratory Results WBC 14.10 K/ul (4.00-12.00) H 10/01/18 06:00 RBC 3.33 M/ul (3.90-5.20) L 10/01/18 06:00 Hgb 7.1 g/dL (12.0-18.0) L 10/01/18 06:00 Hct 23.1 % (37.0-53.0) L 10/01/18 06:00 MCV 69.0 fl (80.0-100.0) L 10/01/18 06:00 MCH 21.4 pg (28.0-34.0) L 10/01/18 06:00 MCHC 30.8 g/dL (30.0-36.0) 10/01/18 06:00 RDW 18.5 % (11.3-14.3) H 10/01/18 06:00 Plt Count 233 K/mm3 (130-400) 10/01/18 06:00 Neut % (Auto) 83.9 % (39.0-79.0) H 10/01/18 06:00 Lymph % (Auto) 8.4 % (16.0-50.0) L 10/01/18 06:00 [place] % (Auto) 6.0 % (0.0-11.0) 10/01/18 06:00 Eos % (Auto) 1.3 % (0.0-6.8) 10/01/18 06:00 Baso % (Auto) 0.4 (0.0-1.5) 10/01/18 06:00 Neut # (Auto) 11.9 # k/uL (1.4-7.7) H 10/01/18 06:00 Lymph # (Auto) 1.2 # k/uL (0.6-4.0) 10/01/18 06:00 [place] # (Auto) 0.9 # k/uL (0.0-0.9) 10/01/18 06:00 Eos # (Auto) 0.2 # k/uL (0.0-0.6) 10/01/18 06:00 Baso # (Auto) 0.1 # k/uL (0.0-0.5) 10/01/18 06:00 Sodium 137 mmol/L (136-145) 10/01/18 06:00 Potassium 3.9 mmol/L (3.5-5.1) 10/01/18 06:00 Chloride 105 mmol/L (98-107) 10/01/18 06:00 Carbon Dioxide 27 mmol/L (22-30) 10/01/18 06:00 BUN 30 mg/dL (9-20) H 10/01/18 06:00 Creatinine 1.07 mg/dL (0.66-1.25) 10/01/18 06:00 Estimated Creat Clear 63 10/01/18 06:00 Est GFR ( Amer) > 60 (60-) 10/01/18 06:00 Est GFR (Non-Af Amer) > 60 (60-) 10/01/18 06:00 Glucose 90 mg/dL (74-106) 10/01/18 06:00 Lactate 1.6 U/L (0.7-2.1) 09/30/18 09:02 Calcium 7.3 mg/dL (8.4-10.2) L 10/01/18 06:00 Total Bilirubin 0.9 mg/dL (0.2-1.3) 10/01/18 06:00 AST 76 U/L (15-46) H 10/01/18 06:00 ALT 61 U/L (13-69) 10/01/18 06:00 Alkaline Phosphatase 116 U/L (38-126) 10/01/18 06:00 Total Protein 5.2 g/dL (6.3-8.2) L 10/01/18 06:00 Albumin 2.0 g/dL (3.5-5.0) L 10/01/18 06:00 Urine Color Yellow (YELLOW) 09/30/18 09:20 Urine Appearance Cloudy (CLEAR) 09/30/18 09:20 Urine pH 6.0 (5.0 - 8.0) 09/30/18 09:20 Ur Specific [place] 1.025 (1.010-1.030) 09/30/18 09:20 Urine Protein 1+ mg/dL (NEGATIVE) H 09/30/18 09:20 Urine Ketones Negative mg/dL (NEGATIVE) 09/30/18 09:20 Urine Occult Blood 2+ (NEGATIVE) H 09/30/18 09:20 Urine Nitrite Negative (NEGATIVE) 09/30/18 09:20 Urine Bilirubin 1+ (NEGATIVE) H 09/30/18 09:20 Urine Urobilinogen 1.0 Eu (0.2-1.0) 09/30/18 09:20 Ur Leukocyte Esterase Negative (NEGATIVE) 09/30/18 09:20 Urine Glucose Negative mg/dL (NEGATIVE) 09/30/18 09:20 Occult Blood (ICT) #2 Negative (NEGATIVE) 09/30/18 20:10 Stool Guaiac Test Positive (NEGATIVE) H 09/30/18 18:45 Influenza Type A Ag Negative (NEGATIVE) 09/30/18 09:20 Influenza Type B Ag Positive (NEGATIVE) H 09/30/18 09:20 Assessment/Plan - Assessment/Plan (1) Right lower lobe pneumonia Status: Acute Current Visit: Yes Qualifiers: Pneumonia type: due to unspecified organism Qualified Code(s): J18.1 - Lobar pneumonia, unspecified organism Assessment: Patient will be continued on present therapy, patient treatments. (2) Left lower lobe pneumonia Status: Acute Current Visit: Yes Qualifiers: Pneumonia type: due to unspecified organism Qualified Code(s): J18.1 - Lobar pneumonia, unspecified organism (3) Influenza B Status: Acute Current Visit: Yes Assessment: Patient will be continued on current antibiotic therapy and high flow nebulization treatments will continue with oxygen therapy trying to maintain SaO2 greater than 90%. (4) Anemia Status: Acute Current Visit: Yes Qualifiers: Anemia type: unspecified type Qualified Code(s): D64.9 - Anemia, unspecified Assessment: Patient hemoglobin did drop down to 7.1. Patient does have one positive stools. Patient will be transfused three units of blood to see if we can help with his oxygenation (5) GI bleeding Status: Acute Current Visit: Yes Assessment: Patient is on proton pump inhibitor at this time. (6) BPH (benign prostatic hyperplasia) Status: Acute Current Visit: Yes Narrative Support Text: Patient is urinating well at this time. (7) PVD (peripheral vascular disease) Status: Acute Current Visit: Yes (8) CAD (coronary artery disease) Status: Acute Current Visit: Yes Assessment: Appears to be stable. No chest pain or chest pressure noted. (9) Atrial fibrillation Status: Chronic Current Visit: Yes Qualifiers: Atrial fibrillation type: paroxysmal Qualified Code(s): I48.0 - Paroxysmal atrial fibrillation Assessment: Stable. (10) Generalized OA Status: Chronic Current Visit: Yes
--- NOTE | 2018-10-02 07:00 | Inpatient Progress Note ---
Subjective - Required Recertification Statement I anticipate X number of days because-include discharge plan: 3 days - Review of Systems Events since last encounter: Patient continues to be did make it short of breath. Patient respiratory status it appeared to be slowly deteriorating. Patient has been placed on a nonrebreather mask at this time. Patient has a mild nonproductive cough. Patient is not any hematochezia or melena. Patient denies any chest pain chest pressure. Patient has had poor oral intake related to his dyspnea. Patient does feel that the breathing treatments do seem to help in for short period of time. Pulmonary: Dyspnea, Cough. Denies: Pleuritic Chest Pain Cardiovascular: Palpitations. Denies: Chest Pain Gastrointestinal: Denies: Nausea, Vomiting, Abdominal Pain Objective - Exam Vitals and I&O: Vital Signs Temp 97.8 F 10/02/18 06:00 Pulse 74 10/02/18 06:00 Resp 22 10/02/18 06:00 BP 110/54 10/02/18 06:00 Pulse Ox 83 L 10/02/18 06:00 Intake & Output 10/01/18 10/01/18 10/02/18 11:59 23:59 11:59 Intake Total 580 616 Output Total 300 1325 700 Balance 280 -624 -700 Intake: IV 100 120 Left Wrist 100 120 Oral 480 220 Blood Product 276 Output: Urine 300 1325 700 Other: Voiding Method Indwelling Catheter Indwelling Catheter Indwelling Catheter # Bowel Movements 1 General: Alert, Oriented to Person, Oriented to Place, Moderate distress Neck: Other (Mild JVD) Lungs: Speaks full Sentences, Wheezes, Rhonchi, Prolonged Expiration Cardiovascular: Regular rate (tchy), Normal S1, Normal S2 Abdomen: Normal bowel sounds, Soft, No tenderness, Vental Hernia Extremities: No clubbing, No cyanosis Skin: Normal, [place], Warm, Dry Psych/Mental Status: Mental status NL, Mood NL, Intact Judgment - Results Results: Laboratory Results WBC 14.10 K/ul (4.00-12.00) H 10/01/18 06:00 RBC 3.33 M/ul (3.90-5.20) L 10/01/18 06:00 Hgb 7.1 g/dL (12.0-18.0) L 10/01/18 06:00 Hct 23.1 % (37.0-53.0) L 10/01/18 06:00 MCV 69.0 fl (80.0-100.0) L 10/01/18 06:00 MCH 21.4 pg (28.0-34.0) L 10/01/18 06:00 MCHC 30.8 g/dL (30.0-36.0) 10/01/18 06:00 RDW 18.5 % (11.3-14.3) H 10/01/18 06:00 Plt Count 233 K/mm3 (130-400) 10/01/18 06:00 Neut % (Auto) 83.9 % (39.0-79.0) H 10/01/18 06:00 Lymph % (Auto) 8.4 % (16.0-50.0) L 10/01/18 06:00 [place] % (Auto) 6.0 % (0.0-11.0) 10/01/18 06:00 Eos % (Auto) 1.3 % (0.0-6.8) 10/01/18 06:00 Baso % (Auto) 0.4 (0.0-1.5) 10/01/18 06:00 Neut # (Auto) 11.9 # k/uL (1.4-7.7) H 10/01/18 06:00 Lymph # (Auto) 1.2 # k/uL (0.6-4.0) 10/01/18 06:00 [place] # (Auto) 0.9 # k/uL (0.0-0.9) 10/01/18 06:00 Eos # (Auto) 0.2 # k/uL (0.0-0.6) 10/01/18 06:00 Baso # (Auto) 0.1 # k/uL (0.0-0.5) 10/01/18 06:00 Sodium 137 mmol/L (136-145) 10/01/18 06:00 Potassium 3.9 mmol/L (3.5-5.1) 10/01/18 06:00 Chloride 105 mmol/L (98-107) 10/01/18 06:00 Carbon Dioxide 27 mmol/L (22-30) 10/01/18 06:00 BUN 30 mg/dL (9-20) H 10/01/18 06:00 Creatinine 1.07 mg/dL (0.66-1.25) 10/01/18 06:00 Estimated Creat Clear 63 10/01/18 06:00 Est GFR ( Amer) > 60 (60-) 10/01/18 06:00 Est GFR (Non-Af Amer) > 60 (60-) 10/01/18 06:00 Glucose 90 mg/dL (74-106) 10/01/18 06:00 Lactate 1.6 U/L (0.7-2.1) 09/30/18 09:02 Calcium 7.3 mg/dL (8.4-10.2) L 10/01/18 06:00 Total Bilirubin 0.9 mg/dL (0.2-1.3) 10/01/18 06:00 AST 76 U/L (15-46) H 10/01/18 06:00 ALT 61 U/L (13-69) 10/01/18 06:00 Alkaline Phosphatase 116 U/L (38-126) 10/01/18 06:00 Total Protein 5.2 g/dL (6.3-8.2) L 10/01/18 06:00 Albumin 2.0 g/dL (3.5-5.0) L 10/01/18 06:00 Urine Color Yellow (YELLOW) 09/30/18 09:20 Urine Appearance Cloudy (CLEAR) 09/30/18 09:20 Urine pH 6.0 (5.0 - 8.0) 09/30/18 09:20 Ur Specific [place] 1.025 (1.010-1.030) 09/30/18 09:20 Urine Protein 1+ mg/dL (NEGATIVE) H 09/30/18 09:20 Urine Ketones Negative mg/dL (NEGATIVE) 09/30/18 09:20 Urine Occult Blood 2+ (NEGATIVE) H 09/30/18 09:20 Urine Nitrite Negative (NEGATIVE) 09/30/18 09:20 Urine Bilirubin 1+ (NEGATIVE) H 09/30/18 09:20 Urine Urobilinogen 1.0 Eu (0.2-1.0) 09/30/18 09:20 Ur Leukocyte Esterase Negative (NEGATIVE) 09/30/18 09:20 Urine Glucose Negative mg/dL (NEGATIVE) 09/30/18 09:20 Occult Blood (ICT) #2 Negative (NEGATIVE) 09/30/18 20:10 Stool Guaiac Test Positive (NEGATIVE) H 09/30/18 18:45 Influenza Type A Ag Negative (NEGATIVE) 09/30/18 09:20 Influenza Type B Ag Positive (NEGATIVE) H 09/30/18 09:20 Assessment/Plan - Assessment/Plan (1) Right lower lobe pneumonia Status: Acute Current Visit: Yes Qualifiers: Pneumonia type: due to unspecified organism Qualified Code(s): J18.1 - Lobar pneumonia, unspecified organism Assessment: Will continue at present medications and treatment. Will go ahead and start the patient on IV steroids to see if we can help with his breathing status better. (2) Left lower lobe pneumonia Status: Acute Current Visit: Yes Qualifiers: Pneumonia type: due to unspecified organism Qualified Code(s): J18.1 - Lobar pneumonia, unspecified organism Assessment: Will continue at present medications and treatment. Will go ahead and start the patient on IV steroids to see if we can help with his breathing status better. (3) Influenza B Status: Acute Current Visit: Yes Assessment: Continue with supportive care and Tamiflu. (4) Anemia Status: Acute Current Visit: Yes Qualifiers: Anemia type: unspecified type Qualified Code(s): D64.9 - Anemia, unspecified Assessment: Hemoglobin has improved to 10.1. Patient is not had any hematochezia melena. (5) GI bleeding Status: Acute Current Visit: Yes Assessment: stable (6) BPH (benign prostatic hyperplasia) Status: Acute Current Visit: Yes (7) CAD (coronary artery disease) Status: Acute Current Visit: Yes (8) Atrial fibrillation Status: Chronic Current Visit: Yes Qualifiers: Atrial fibrillation type: paroxysmal Qualified Code(s): I48.0 - Paroxysmal atrial fibrillation (9) Elevated LFTs Status: Acute Current Visit: Yes Assessment: Appear to be improved today. (10) CHF (congestive heart failure) Status: Acute Current Visit: Yes Assessment: Patient has been started on IV Lasix therapy. Last chest x-ray done was consistent with congestive heart failure. BNP is elevated.
[2018-10-02 07:05] LABS: eGFR (Non-African) 57
[2018-10-02 07:07] LABS: BASOPHILS % 0.4 (0.0-1.5); EOSINOPHILS % 0.9 % (0.0-6.8); MEAN CORPUSCULAR HEMOGLOBIN 23.1 pg (28.0-34.0); MONOCYTES % 4.4 % (0.0-11.0); NEUTROPHILS # 14.6 # k/uL (1.4-7.7)
[2018-10-02] MEDS: DOXAZOSIN MESYLATE 2 MG TABLET PO SCH (10:01)
[2018-10-02] MEDS: LEVOFLOXACIN IN DEXTROSE 5 % 500 MG/100 ML BAG IV SCH (10:02)
[2018-10-02] MEDS: PROPRANOLOL HCL 20 MG TABLET PO SCH (10:02)
[2018-10-02] MEDS: DOCUSATE SODIUM 100 MG CAPSULE PO SCH ×2 (10:02→21:34)
[2018-10-02] MEDS: DIGOXIN 125 MCG TABLET PO SCH (10:02)
[2018-10-02] MEDS: FINASTERIDE 5 MG TABLET PO SCH (10:03)
[2018-10-02] MEDS: ATORVASTATIN CALCIUM 20 MG TABLET PO SCH (10:03)
[2018-10-02] MEDS: SALINE FLUSH 10 ML DISP.SYRIN IV SCH ×2 (10:04→21:34)
[2018-10-02] MEDS: POLYETHYLENE GLYCOL 3350 17 GM POWD.PACK PO SCH (10:04)
[2018-10-02] MEDS: AMIODARONE HCL 200 MG TABLET PO SCH (10:04)
[2018-10-02] MEDS: OSELTAMIVIR PHOSPHATE 75 MG CAPSULE PO SCH ×2 (10:05→21:34)
[2018-10-02] MEDS: methylPREDNISolone SOD SUCC 40 MG/ML VIAL IVP SCH ×2 (10:44→21:36)
[2018-10-02] MEDS: LEVOFLOXACIN IN DEXTROSE 5 % 250 MG/50 ML BAG IV SCH (11:05)
[2018-10-02] MEDS: FUROSEMIDE 40 MG/4 ML VIAL IVP SCH (14:40)
[2018-10-02] MEDS ORDERED: 0.9 % SODIUM CHLORIDE 50 ML IV ONE (17:57)
[2018-10-02] MEDS ORDERED: PANTOPRAZOLE SODIUM INJ. 40 MG VIAL ONE (17:57)
[2018-10-02] MEDS: LATANOPROST 0.005% OPTH DROP OP SCH (21:43)
[2018-10-03] MEDS: ACETAMINOPHEN 500 MG TABLET PO PRN (01:10)
[2018-10-03] MEDS: IPRATROPIUM/ALBUTEROL SULFATE 3 ML AMPUL.NEB NEB SCH ×6 (02:15→23:58)
--- NOTE | 2018-10-03 05:26 | Diagnostic Imaging Report ---
[facility] [address] On License Of [facility] [address] [place] [address]. [address] Report Submission Date: Oct 02, 2018 7:44:30 AM [employer] Patient Study Name: ALEXANDREA QUESADA Date: Oct 02, 2018 7:14:28 AM [employer] Modality Type: DX Gender: M Description: CHEST 1VIEW : 39 Institution: [facility] Physician: [facility] HISTORY: 83 year-old male with shortness of breath COMPARISON: 09/30/2018 TECHNIQUE: Single portable AP view of the chest was performed. FINDINGS: Left chest pacemaker is re-identified. There is diffuse prominence of the interstitial markings, slightly more prominent on the right, essentially stable versus previous chest x-ray. There are small bilateral pleural effusions. No pneumothorax. The heart is borderline enlarged. There are advanced degenerative changes of both shoulders. 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 IMPRESSION: Diffuse prominence of the interstitial markings and bilateral pleural effusions, consistent with CHF. The appearance of the chest is essentially stable versus chest x-ray performed 2 days earlier. Electronically signed on Oct 02, 2018 7:44:30 AM [employer] by: Gamal BRITTON
[2018-10-03] MEDS: FUROSEMIDE 40 MG/4 ML VIAL IVP SCH ×2 (06:00→13:45)
[2018-10-03] MEDS: PANTOPRAZOLE SODIUM 80 MG in 0.9 % SODIUM CHLORIDE 50 ML IV SCH ×2 (06:02→17:46)
[2018-10-03 07:21] LABS: MEAN CORPUSCULAR HEMOGLOBIN 23.5 pg (28.0-34.0); eGFR (Non-African) 57
[2018-10-03 07:22] LABS: BASOPHILS % 0.4 (0.0-1.5); EOSINOPHILS % 0.9 % (0.0-6.8); MONOCYTES % 4.5 % (0.0-11.0); NEUTROPHILS # 14.8 # k/uL (1.4-7.7)
--- NOTE | 2018-10-03 08:20 | Inpatient Progress Note ---
Subjective - Required Recertification Statement I anticipate X number of days because-include discharge plan: 3 - Review of Systems Events since last encounter: Patient breathing status remains about the same. Patient continues to need a nonrebreather mask in order to maintain as SaO2 at an adequate level. Patient SaO2 has been dropping down into the mid 80s even with a nonrebreather mask. Patient is not complain of any chest pain or chest pressure. Patient states that he just wants to . HEENT: Denies: Head Aches Pulmonary: Dyspnea, Cough Cardiovascular: Denies: Chest Pain, Palpitations Gastrointestinal: Denies: Nausea, Vomiting, Abdominal Pain, Diarrhea, Constipation, Melena, Hematochezia Objective - Exam Vitals and I&O: Vital Signs Temp 98.3 F 10/03/18 05:32 Pulse 77 10/03/18 05:32 Resp 20 10/03/18 05:32 BP 121/59 10/03/18 05:32 Pulse Ox 82 L 10/03/18 05:32 Intake & Output 10/02/18 10/02/18 10/03/18 11:59 23:59 11:59 Intake Total 357 232 320 Output Total 700 875 200 Balance -343 -643 120 Weight 83.007 kg Intake: IV 12 100 Left Wrist 12 100 Oral 357 220 220 Output: Urine 700 875 200 Other: Voiding Method Indwelling Catheter Indwelling Catheter Indwelling Catheter General: Alert, Oriented to Person. No: Oriented to Place, Oriented to Time Neck: Other (mild JVD) Lungs: Speaks full Sentences, Wheezes, Rales (about the same) Cardiovascular: Regular rate, Normal S1, Normal S2, Other Abdomen: Normal bowel sounds, Soft, No tenderness, No hepatospenomegaly Skin: Normal, [place], Warm, Dry Neurological: Normal gait, Normal speech Psych/Mental Status: Mental status NL - Results Results: Laboratory Results WBC 16.60 K/ul (4.00-12.00) H 10/03/18 06:00 RBC 4.12 M/ul (3.90-5.20) 10/03/18 06:00 Hgb 9.7 g/dL (12.0-18.0) L 10/03/18 06:00 Hct 30.2 % (37.0-53.0) L 10/03/18 06:00 MCV 73.0 fl (80.0-100.0) L 10/03/18 06:00 MCH 23.5 pg (28.0-34.0) L 10/03/18 06:00 MCHC 32.0 g/dL (30.0-36.0) 10/03/18 06:00 RDW 19.7 % (11.3-14.3) H 10/03/18 06:00 Plt Count 223 K/mm3 (130-400) 10/03/18 06:00 Neut % (Auto) 88.8 % (39.0-79.0) H 10/03/18 06:00 Lymph % (Auto) 5.4 % (16.0-50.0) L 10/03/18 06:00 [place] % (Auto) 4.5 % (0.0-11.0) 10/03/18 06:00 Eos % (Auto) 0.9 % (0.0-6.8) 10/03/18 06:00 Baso % (Auto) 0.4 (0.0-1.5) 10/03/18 06:00 Neut # (Auto) 14.8 # k/uL (1.4-7.7) H 10/03/18 06:00 Lymph # (Auto) 0.9 # k/uL (0.6-4.0) 10/03/18 06:00 [place] # (Auto) 0.8 # k/uL (0.0-0.9) 10/03/18 06:00 Eos # (Auto) 0.2 # k/uL (0.0-0.6) 10/03/18 06:00 Baso # (Auto) 0.1 # k/uL (0.0-0.5) 10/03/18 06:00 Sodium 133 mmol/L (136-145) L 10/03/18 06:00 Potassium 3.8 mmol/L (3.5-5.1) 10/03/18 06:00 Chloride 100 mmol/L (98-107) 10/03/18 06:00 Carbon Dioxide 29 mmol/L (22-30) 10/03/18 06:00 BUN 35 mg/dL (9-20) H 10/03/18 06:00 Creatinine 1.28 mg/dL (0.66-1.25) H 10/03/18 06:00 Estimated Creat Clear 53 10/03/18 06:00 Est GFR ( Amer) > 60 (60-) 10/03/18 06:00 Est GFR (Non-Af Amer) 57 (60-) L 10/03/18 06:00 Glucose 116 mg/dL (74-106) H 10/03/18 06:00 Lactate 1.6 U/L (0.7-2.1) 09/30/18 09:02 Calcium 7.5 mg/dL (8.4-10.2) L 10/03/18 06:00 Iron (send out) See scanned report 10/01/18 Unknown Total Bilirubin 0.8 mg/dL (0.2-1.3) 10/03/18 06:00 AST 60 U/L (15-46) H 10/03/18 06:00 ALT 51 U/L (13-69) 10/03/18 06:00 Alkaline Phosphatase 134 U/L (38-126) H 10/03/18 06:00 NT-Pro-B Natriuret Pep 4332.6 pg/mL (15.0-450.0) H 10/02/18 06:30 Total Protein 5.6 g/dL (6.3-8.2) L 10/03/18 06:00 Albumin 2.4 g/dL (3.5-5.0) L 10/03/18 06:00 Urine Color Yellow (YELLOW) 09/30/18 09:20 Urine Appearance Cloudy (CLEAR) 09/30/18 09:20 Urine pH 6.0 (5.0 - 8.0) 09/30/18 09:20 Ur Specific [place] 1.025 (1.010-1.030) 09/30/18 09:20 Urine Protein 1+ mg/dL (NEGATIVE) H 09/30/18 09:20 Urine Ketones Negative mg/dL (NEGATIVE) 09/30/18 09:20 Urine Occult Blood 2+ (NEGATIVE) H 09/30/18 09:20 Urine Nitrite Negative (NEGATIVE) 09/30/18 09:20 Urine Bilirubin 1+ (NEGATIVE) H 09/30/18 09:20 Urine Urobilinogen 1.0 Eu (0.2-1.0) 09/30/18 09:20 Ur Leukocyte Esterase Negative (NEGATIVE) 09/30/18 09:20 Urine Glucose Negative mg/dL (NEGATIVE) 09/30/18 09:20 Occult Blood (ICT) #2 Negative (NEGATIVE) 09/30/18 20:10 Stool Guaiac Test Positive (NEGATIVE) H 09/30/18 18:45 Influenza Type A Ag Negative (NEGATIVE) 09/30/18 09:20 Influenza Type B Ag Positive (NEGATIVE) H 09/30/18 09:20 Assessment/Plan - Assessment/Plan (1) Right lower lobe pneumonia Status: Acute Current Visit: Yes Qualifiers: Pneumonia type: due to unspecified organism Qualified Code(s): J18.1 - Lobar pneumonia, unspecified organism Assessment: Patient will be continued on IV antibiotics IV steroids and high flow nebulization treatments. (2) Left lower lobe pneumonia Status: Acute Current Visit: Yes Qualifiers: Pneumonia type: due to unspecified organism Qualified Code(s): J18.1 - Lobar pneumonia, unspecified organism Assessment: Patient will be continued on IV antibiotics IV steroids and high flow nebulization treatments. (3) Influenza B Status: Acute Current Visit: Yes (4) Anemia Status: Acute Current Visit: Yes Qualifiers: Anemia type: unspecified type Qualified Code(s): D64.9 - Anemia, unspecified Assessment: Blood count is remain stable at this time. Will go ahead and continue to monitor. (5) GI bleeding Status: Acute Current Visit: Yes (6) PVD (peripheral vascular disease) Status: Acute Current Visit: Yes (7) CAD (coronary artery disease) Status: Acute Current Visit: Yes Assessment: stable (8) Atrial fibrillation Status: Chronic Current Visit: Yes Qualifiers: Atrial fibrillation type: paroxysmal Qualified Code(s): I48.0 - Paroxysmal atrial fibrillation Assessment: stable (9) Elevated LFTs Status: Acute Current Visit: Yes Assessment: [place] to be possibly related to congestive heart failure. Patient BUN and creatinine are slowly increasing may need to come back on Lasix therapy.
[2018-10-03] MEDS: LEVOFLOXACIN IN DEXTROSE 5 % 500 MG/100 ML BAG IV SCH (08:51)
[2018-10-03] MEDS: FINASTERIDE 5 MG TABLET PO SCH (08:52)
[2018-10-03] MEDS: OSELTAMIVIR PHOSPHATE 75 MG CAPSULE PO SCH ×2 (08:52→23:42)
[2018-10-03] MEDS: SALINE FLUSH 10 ML DISP.SYRIN IV SCH ×2 (08:52→23:41)
[2018-10-03] MEDS: AMIODARONE HCL 200 MG TABLET PO SCH (08:52)
[2018-10-03] MEDS: POLYETHYLENE GLYCOL 3350 17 GM POWD.PACK PO SCH (08:52)
[2018-10-03] MEDS: DIGOXIN 125 MCG TABLET PO SCH (08:52)
[2018-10-03] MEDS: DOXAZOSIN MESYLATE 2 MG TABLET PO SCH (08:52)
[2018-10-03] MEDS: PROPRANOLOL HCL 20 MG TABLET PO SCH (08:53)
[2018-10-03] MEDS: DOCUSATE SODIUM 100 MG CAPSULE PO SCH ×3 (08:53→23:59)
[2018-10-03] MEDS: methylPREDNISolone SOD SUCC 40 MG/ML VIAL IVP SCH ×2 (09:45→22:50)
[2018-10-03] MEDS: LEVOFLOXACIN IN DEXTROSE 5 % 250 MG/50 ML BAG IV SCH (10:49)
[2018-10-03] MEDS ORDERED: methylPREDNISolone SOD SUCC 125 MG/2 ML VIAL ONE (22:35)
[2018-10-03] MEDS: LATANOPROST 0.005% OPTH DROP OP SCH (22:45)
[2018-10-03] MEDS: LORazepam 0.5 MG TABLET PO PRN (23:38)
[2018-10-03] MEDS: SODIUM CHLORIDE 0.9% 1 NASAL SPRAY BTL NS PRN (23:39)
[2018-10-04] MEDS: IPRATROPIUM/ALBUTEROL SULFATE 3 ML AMPUL.NEB NEB SCH ×6 (01:55→20:10)
[2018-10-04] MEDS: PANTOPRAZOLE SODIUM 80 MG in 0.9 % SODIUM CHLORIDE 50 ML IV SCH ×2 (06:12→17:28)
[2018-10-04] MEDS: FUROSEMIDE 40 MG/4 ML VIAL IVP SCH ×2 (06:17→13:36)
[2018-10-04 06:47] LABS: eGFR (Non-African) > 60
[2018-10-04 06:48] LABS: BASOPHILS % 0.5 (0.0-1.5); EOSINOPHILS % 1.2 % (0.0-6.8); MEAN CORPUSCULAR HEMOGLOBIN 23.4 pg (28.0-34.0); MONOCYTES % 4.3 % (0.0-11.0)
[2018-10-04 06:49] LABS: NEUTROPHILS # 17.1 # k/uL (1.4-7.7)
--- NOTE | 2018-10-04 08:43 | Inpatient Progress Note ---
Subjective - Required Recertification Statement I anticipate X number of days because-include discharge plan: 2 - Review of Systems Events since last encounter: Patient contiues to be SOB. No cough noted at this time. No complaints of pain. Pulmonary: Dyspnea Cardiovascular: Denies: Chest Pain, Palpitations Gastrointestinal: Denies: Nausea, Vomiting, Abdominal Pain Objective - Exam Vitals and I&O: Vital Signs Temp 97.6 F 10/04/18 06:00 Pulse 72 10/04/18 06:00 Resp 44 H 10/04/18 06:00 BP 130/74 10/04/18 06:00 Pulse Ox 84 L 10/04/18 05:13 Intake & Output 10/03/18 10/03/18 10/04/18 11:59 23:59 12:59 Intake Total 320 500 0 Output Total 450 1450 250 Balance -130 -950 -250 Intake: IV 100 0 0 Left Wrist 100 0 0 Oral 220 500 Output: Urine 450 1450 250 Other: Voiding Method Indwelling Catheter Indwelling Catheter Indwelling Catheter # Bowel Movements 0 General: Alert, Oriented to Person, Oriented to Place Neck: Supple Lungs: Rhonchi (mild bila, breath sound seem better, patient seems to be moving air better) Cardiovascular: Regular rate, Normal S1, Normal S2 Abdomen: Normal bowel sounds, Soft, No tenderness Extremities: No clubbing, No cyanosis, No edema Skin: Normal, [place], Warm, Dry - Results Results: Laboratory Results WBC 19.30 K/ul (4.00-12.00) H 10/04/18 05:59 RBC 4.26 M/ul (3.90-5.20) 10/04/18 05:59 Hgb 10.0 g/dL (12.0-18.0) L 10/04/18 05:59 Hct 31.3 % (37.0-53.0) L 10/04/18 05:59 MCV 73.0 fl (80.0-100.0) L 10/04/18 05:59 MCH 23.4 pg (28.0-34.0) L 10/04/18 05:59 MCHC 31.8 g/dL (30.0-36.0) 10/04/18 05:59 RDW 20.3 % (11.3-14.3) H 10/04/18 05:59 Plt Count 215 K/mm3 (130-400) 10/04/18 05:59 Neut % (Auto) 88.8 % (39.0-79.0) H 10/04/18 05:59 Lymph % (Auto) 5.2 % (16.0-50.0) L 10/04/18 05:59 [place] % (Auto) 4.3 % (0.0-11.0) 10/04/18 05:59 Eos % (Auto) 1.2 % (0.0-6.8) 10/04/18 05:59 Baso % (Auto) 0.5 (0.0-1.5) 10/04/18 05:59 Neut # (Auto) 17.1 # k/uL (1.4-7.7) H 10/04/18 05:59 Lymph # (Auto) 1.0 # k/uL (0.6-4.0) 10/04/18 05:59 [place] # (Auto) 0.8 # k/uL (0.0-0.9) 10/04/18 05:59 Eos # (Auto) 0.2 # k/uL (0.0-0.6) 10/04/18 05:59 Baso # (Auto) 0.1 # k/uL (0.0-0.5) 10/04/18 05:59 Sodium 134 mmol/L (136-145) L 10/04/18 05:59 Potassium 3.5 mmol/L (3.5-5.1) 10/04/18 05:59 Chloride 97 mmol/L (98-107) L 10/04/18 05:59 Carbon Dioxide 31 mmol/L (22-30) H 10/04/18 05:59 BUN 38 mg/dL (9-20) H 10/04/18 05:59 Creatinine 1.23 mg/dL (0.66-1.25) 10/04/18 05:59 Estimated Creat Clear 55 10/04/18 05:59 Est GFR ( Amer) > 60 (60-) 10/04/18 05:59 Est GFR (Non-Af Amer) > 60 (60-) 10/04/18 05:59 Glucose 113 mg/dL (74-106) H 10/04/18 05:59 Lactate 1.6 U/L (0.7-2.1) 09/30/18 09:02 Calcium 7.5 mg/dL (8.4-10.2) L 10/04/18 05:59 Iron (send out) See scanned report 10/01/18 Unknown Total Bilirubin 1.1 mg/dL (0.2-1.3) 10/04/18 05:59 AST 86 U/L (15-46) H 10/04/18 05:59 ALT 67 U/L (13-69) 10/04/18 05:59 Alkaline Phosphatase 159 U/L (38-126) H 10/04/18 05:59 NT-Pro-B Natriuret Pep 4332.6 pg/mL (15.0-450.0) H 10/02/18 06:30 Total Protein 5.9 g/dL (6.3-8.2) L 10/04/18 05:59 Albumin 2.4 g/dL (3.5-5.0) L 10/04/18 05:59 Urine Color Yellow (YELLOW) 09/30/18 09:20 Urine Appearance Cloudy (CLEAR) 09/30/18 09:20 Urine pH 6.0 (5.0 - 8.0) 09/30/18 09:20 Ur Specific [place] 1.025 (1.010-1.030) 09/30/18 09:20 Urine Protein 1+ mg/dL (NEGATIVE) H 09/30/18 09:20 Urine Ketones Negative mg/dL (NEGATIVE) 09/30/18 09:20 Urine Occult Blood 2+ (NEGATIVE) H 09/30/18 09:20 Urine Nitrite Negative (NEGATIVE) 09/30/18 09:20 Urine Bilirubin 1+ (NEGATIVE) H 09/30/18 09:20 Urine Urobilinogen 1.0 Eu (0.2-1.0) 09/30/18 09:20 Ur Leukocyte Esterase Negative (NEGATIVE) 09/30/18 09:20 Urine Glucose Negative mg/dL (NEGATIVE) 09/30/18 09:20 Occult Blood (ICT) #2 Negative (NEGATIVE) 09/30/18 20:10 Stool Guaiac Test Positive (NEGATIVE) H 09/30/18 18:45 Influenza Type A Ag Negative (NEGATIVE) 09/30/18 09:20 Influenza Type B Ag Positive (NEGATIVE) H 09/30/18 09:20 Assessment/Plan - Assessment/Plan (1) Right lower lobe pneumonia Status: Acute Current Visit: Yes Qualifiers: Pneumonia type: due to unspecified organism Qualified Code(s): J18.1 - Lobar pneumonia, unspecified organism Assessment: Will continue with present care. SAO2 was better during the day yesterday. Will repeat BNP and chest x-ray/ (2) Left lower lobe pneumonia Status: Acute Current Visit: Yes Qualifiers: Pneumonia type: due to unspecified organism Qualified Code(s): J18.1 - Lobar pneumonia, unspecified organism (3) Influenza B Status: Acute Current Visit: Yes Assessment: continue with tamiflue and supportive care (4) Anemia Status: Acute Current Visit: Yes Qualifiers: Anemia type: unspecified type Qualified Code(s): D64.9 - Anemia, unspecified Assessment: stable, Fe level is low but will hold off on Fe supplement until patient is doing better. (5) GI bleeding Status: Acute Current Visit: Yes (6) CAD (coronary artery disease) Status: Acute Current Visit: Yes Assessment: stable (7) Atrial fibrillation Status: Chronic Current Visit: Yes Qualifiers: Atrial fibrillation type: paroxysmal Qualified Code(s): I48.0 - Paroxysmal atrial fibrillation Assessment: stable (8) Elevated LFTs Status: Acute Current Visit: Yes Assessment: stable
[2018-10-04] MEDS ORDERED: 0.9 % SODIUM CHLORIDE 250 ML IV ONE (08:54)
[2018-10-04] MEDS: methylPREDNISolone SOD SUCC 40 MG/ML VIAL IVP SCH ×2 (09:48→20:57)
[2018-10-04] MEDS: LEVOFLOXACIN IN DEXTROSE 5 % 500 MG/100 ML BAG IV SCH (09:48)
[2018-10-04] MEDS: SALINE FLUSH 10 ML DISP.SYRIN IV SCH ×2 (09:48→20:10)
[2018-10-04] MEDS: DOCUSATE SODIUM 100 MG CAPSULE PO SCH ×2 (09:55→20:10)
[2018-10-04] MEDS: DOXAZOSIN MESYLATE 2 MG TABLET PO SCH (09:55)
[2018-10-04] MEDS: DIGOXIN 125 MCG TABLET PO SCH (09:56)
[2018-10-04] MEDS: FINASTERIDE 5 MG TABLET PO SCH (09:56)
[2018-10-04] MEDS: OSELTAMIVIR PHOSPHATE 75 MG CAPSULE PO SCH ×2 (09:56→20:10)
[2018-10-04] MEDS: POLYETHYLENE GLYCOL 3350 17 GM POWD.PACK PO SCH (09:57)
[2018-10-04] MEDS: PROPRANOLOL HCL 20 MG TABLET PO SCH (09:59)
[2018-10-04] MEDS: AMIODARONE HCL 200 MG TABLET PO SCH (10:00)
[2018-10-04] MEDS: LEVOFLOXACIN IN DEXTROSE 5 % 250 MG/50 ML BAG IV SCH ×2 (11:37→11:40)
[2018-10-04] MEDS: LATANOPROST 0.005% OPTH DROP OP SCH (20:10)
[2018-10-05] MEDS: IPRATROPIUM/ALBUTEROL SULFATE 3 ML AMPUL.NEB NEB SCH ×6 (01:47→17:58)
[2018-10-05] MEDS ORDERED: FUROSEMIDE 20 MG/2 ML VIAL ONE (06:14)
[2018-10-05] MEDS: FUROSEMIDE 40 MG/4 ML VIAL IVP SCH ×3 (06:36→14:41)
[2018-10-05] MEDS: PANTOPRAZOLE SODIUM 80 MG in 0.9 % SODIUM CHLORIDE 50 ML IV SCH ×2 (06:36→16:47)
--- NOTE | 2018-10-05 07:19 | Diagnostic Imaging Report ---
LYLA HAM [facility] [id number] [facility].[address] [address] Report Submission Date: Oct 05, 2018 7:03:04 AM CDT Patient Study Name: ALEXANDREA QUESADA Date: Oct 05, 2018 6:44:07 AM CDT Modality Type: DX Gender: M Description: CHEST 1VIEW : 39 Institution: [facility] Physician: LYLA HAM Chest, 1view History: DYSPNEA Findings: Comparison is made to exam dated 10/02/2018. The heart size is enlarged with diffuse pulmonary vascular congestion bilateral airspace infiltrates/edema present. There is no pleural effusion or pneumothorax identified. The osseous structures are normal. Cardiac device is in place. Impression: 1. Diffuse vascular congestion bilateral interstitial infiltrate/edema most consistent with congestive heart failure, and not significantly changed. Electronically signed on Oct 05, 2018 7:03:04 AM CDT by: Donell BRITTON
[2018-10-05 07:29] LABS: eGFR (Non-African) > 60
[2018-10-05 07:46] LABS: ANISOCYTOSIS 3+ (NEGATIVE); BASOPHILS % 0.5 (0.0-1.5); HYPOCHROMASIA 2+ (NEGATIVE); MEAN CORPUSCULAR HEMOGLOBIN 23.1 pg (28.0-34.0); MONOCYTES % 4.2 % (0.0-11.0); NEUTROPHILS # 16.3 # k/uL (1.4-7.7); OVALOCYTES 2+ (NEGATIVE)
[2018-10-05 07:47] LABS: TEAR DROP CELLS 2+ (NEGATIVE)
[2018-10-05] MEDS ORDERED: methylPREDNISolone SOD SUCC 125 MG/2 ML VIAL ONE (08:23)
[2018-10-05] MEDS: DOCUSATE SODIUM 100 MG CAPSULE PO SCH ×2 (08:49→21:24)
[2018-10-05] MEDS: DOXAZOSIN MESYLATE 2 MG TABLET PO SCH (08:49)
[2018-10-05] MEDS: PROPRANOLOL HCL 20 MG TABLET PO SCH (08:50)
[2018-10-05] MEDS: DIGOXIN 125 MCG TABLET PO SCH (08:50)
[2018-10-05] MEDS: LEVOFLOXACIN IN DEXTROSE 5 % 500 MG/100 ML BAG IV SCH (08:51)
[2018-10-05] MEDS: FINASTERIDE 5 MG TABLET PO SCH (08:51)
[2018-10-05] MEDS: AMIODARONE HCL 200 MG TABLET PO SCH (08:51)
[2018-10-05] MEDS: POLYETHYLENE GLYCOL 3350 17 GM POWD.PACK PO SCH (08:51)
[2018-10-05] MEDS: SALINE FLUSH 10 ML DISP.SYRIN IV SCH ×2 (08:51→21:27)
[2018-10-05] MEDS: OSELTAMIVIR PHOSPHATE 75 MG CAPSULE PO SCH ×2 (08:52→21:24)
[2018-10-05] MEDS: LORazepam 0.5 MG TABLET PO PRN ×2 (08:52→20:20)
[2018-10-05] MEDS: methylPREDNISolone SOD SUCC 40 MG/ML VIAL IVP SCH ×2 (08:52→21:10)
--- NOTE | 2018-10-05 09:25 | Inpatient Progress Note ---
Subjective - Required Recertification Statement I anticipate X number of days because-include discharge plan: 5 - Review of Systems Events since last encounter: Camron continues to be dyspneic. His edema is much improved, but his dyspnea continues. He is on 15L by NRB and when he comes off of it to eat, he drops to about 70. He has marked dyspnea even with movement in her bed. General: Fatigue, Malaise. Denies: Chills HEENT: Denies: Head Aches Pulmonary: Dyspnea, Cough. Denies: Pleuritic Chest Pain Cardiovascular: Orthopnea, Paroxysmal Noc. Dyspnea, Edema (improved). Denies: Chest Pain, Palpitations Gastrointestinal: Denies: Nausea, Vomiting Genitourinary: Denies: Dysuria Musculoskeletal: Denies: Neck Pain, Shoulder Pain Neurological: Weakness. Denies: Confusion Objective - Exam Vitals and I&O: Vital Signs Temp 97.6 F 10/05/18 06:00 Pulse 74 10/05/18 06:00 Resp 40 H 10/05/18 06:00 BP 98/56 10/05/18 06:00 Pulse Ox 93 10/05/18 06:00 Intake & Output 10/04/18 10/04/18 10/05/18 11:59 23:59 11:59 Intake Total 610 240 Output Total 1600 350 Balance -990 -110 Intake: IV 110 Left Wrist 110 Oral 500 240 Output: Urine 1600 350 Other: Voiding Method Indwelling Catheter Indwelling Catheter General: Oriented to Person HEENT: Atraumatic, PERRLA, EOMI Neck: Supple, No JVD Lungs: Wheezes, Rales, Rhonchi Cardiovascular: Normal S1, Normal S2 Abdomen: Normal bowel sounds, Soft, No tenderness Extremities: No clubbing, No cyanosis, No edema Skin: Normal, [place] Neurological: Generalized Weakness Psych/Mental Status: No: Mental status NL, Appropriate Affect, Intact Judgment - Results Results: Laboratory Results WBC 18.80 K/ul (4.00-12.00) H 10/05/18 06:00 RBC 4.08 M/ul (3.90-5.20) 10/05/18 06:00 Hgb 9.4 g/dL (12.0-18.0) L 10/05/18 06:00 Hct 29.9 % (37.0-53.0) L 10/05/18 06:00 MCV 73.0 fl (80.0-100.0) L 10/05/18 06:00 MCH 23.1 pg (28.0-34.0) L 10/05/18 06:00 MCHC 31.6 g/dL (30.0-36.0) 10/05/18 06:00 RDW 20.1 % (11.3-14.3) H 10/05/18 06:00 Plt Count 154 K/mm3 (130-400) 10/05/18 06:00 Neut % (Auto) 86.9 % (39.0-79.0) H 10/05/18 06:00 Lymph % (Auto) 7.4 % (16.0-50.0) L 10/05/18 06:00 [place] % (Auto) 4.2 % (0.0-11.0) 10/05/18 06:00 Eos % (Auto) 1.0 % (0.0-6.8) 10/05/18 06:00 Baso % (Auto) 0.5 (0.0-1.5) 10/05/18 06:00 Neut # (Auto) 16.3 # k/uL (1.4-7.7) H 10/05/18 06:00 Lymph # (Auto) 1.4 # k/uL (0.6-4.0) 10/05/18 06:00 [place] # (Auto) 0.8 # k/uL (0.0-0.9) 10/05/18 06:00 Eos # (Auto) 0.2 # k/uL (0.0-0.6) 10/05/18 06:00 Baso # (Auto) 0.1 # k/uL (0.0-0.5) 10/05/18 06:00 Hypochromasia 2+ (NEGATIVE) H 10/05/18 06:00 Anisocytosis 3+ (NEGATIVE) H 10/05/18 06:00 Tear Drop Cells 2+ (NEGATIVE) H 10/05/18 06:00 Ovalocytes 2+ (NEGATIVE) H 10/05/18 06:00 Schistocytes 1+ (NEGATIVE) H 10/05/18 06:00 Sodium 133 mmol/L (136-145) L 10/05/18 06:00 Potassium 3.4 mmol/L (3.5-5.1) L 10/05/18 06:00 Chloride 97 mmol/L (98-107) L 10/05/18 06:00 Carbon Dioxide 33 mmol/L (22-30) H 10/05/18 06:00 BUN 38 mg/dL (9-20) H 10/05/18 06:00 Creatinine 1.16 mg/dL (0.66-1.25) 10/05/18 06:00 Estimated Creat Clear 58 10/05/18 06:00 Est GFR ( Amer) > 60 (60-) 10/05/18 06:00 Est GFR (Non-Af Amer) > 60 (60-) 10/05/18 06:00 Glucose 104 mg/dL (74-106) 10/05/18 06:00 Lactate 1.6 U/L (0.7-2.1) 09/30/18 09:02 Calcium 7.5 mg/dL (8.4-10.2) L 10/05/18 06:00 Iron (send out) See scanned report 10/01/18 Unknown Total Bilirubin 1.0 mg/dL (0.2-1.3) 10/05/18 06:00 AST 91 U/L (15-46) H 10/05/18 06:00 ALT 72 U/L (13-69) H 10/05/18 06:00 Alkaline Phosphatase 145 U/L (38-126) H 10/05/18 06:00 NT-Pro-B Natriuret Pep 7473.4 pg/mL (15.0-450.0) H 10/05/18 06:00 Total Protein 5.6 g/dL (6.3-8.2) L 10/05/18 06:00 Albumin 2.3 g/dL (3.5-5.0) L 10/05/18 06:00 Urine Color Yellow (YELLOW) 09/30/18 09:20 Urine Appearance Cloudy (CLEAR) 09/30/18 09:20 Urine pH 6.0 (5.0 - 8.0) 09/30/18 09:20 Ur Specific [place] 1.025 (1.010-1.030) 09/30/18 09:20 Urine Protein 1+ mg/dL (NEGATIVE) H 09/30/18 09:20 Urine Ketones Negative mg/dL (NEGATIVE) 09/30/18 09:20 Urine Occult Blood 2+ (NEGATIVE) H 09/30/18 09:20 Urine Nitrite Negative (NEGATIVE) 09/30/18 09:20 Urine Bilirubin 1+ (NEGATIVE) H 09/30/18 09:20 Urine Urobilinogen 1.0 Eu (0.2-1.0) 09/30/18 09:20 Ur Leukocyte Esterase Negative (NEGATIVE) 09/30/18 09:20 Urine Glucose Negative mg/dL (NEGATIVE) 09/30/18 09:20 Occult Blood (ICT) #2 Negative (NEGATIVE) 09/30/18 20:10 Stool Guaiac Test Positive (NEGATIVE) H 09/30/18 18:45 Influenza Type A Ag Negative (NEGATIVE) 09/30/18 09:20 Influenza Type B Ag Positive (NEGATIVE) H 09/30/18 09:20 Assessment/Plan - Assessment/Plan (1) Anemia Status: Acute Current Visit: Yes Qualifiers: Anemia type: unspecified type Qualified Code(s): D64.9 - Anemia, unspecified Assessment: Continue to follow Transfuse as needed (2) CHF (congestive heart failure) Status: Acute Current Visit: Yes Assessment: Increased lasix back to 40 mg IV q12h due to continued findings of CHF on clinical exam/XR and lab. (3) GI bleeding Status: Acute Current Visit: Yes Assessment: Hold anticoagulation Follow CBC (4) Influenza B Status: Acute Current Visit: Yes Assessment: Has finished his course of Tamiflu (5) Left lower lobe pneumonia Status: Acute Current Visit: Yes Qualifiers: Pneumonia type: due to unspecified organism Qualified Code(s): J18.1 - Lobar pneumonia, unspecified organism Assessment: Continue current antibiotic therapy (6) Atrial fibrillation Status: Chronic Current Visit: Yes Qualifiers: Atrial fibrillation type: paroxysmal Qualified Code(s): I48.0 - Paroxysmal atrial fibrillation Assessment: Holding anticoagulation due to GI bleed Rate is controlled.
[2018-10-05] MEDS ORDERED: MORPHINE SULFATE 10MG/0.5ML ORAL SOLN UD CUP PO PRN (09:29)
[2018-10-05] MEDS: SODIUM CHLORIDE 0.9% 1 NASAL SPRAY BTL NS PRN ×2 (09:30→14:42)
[2018-10-05] MEDS: LEVOFLOXACIN IN DEXTROSE 5 % 250 MG/50 ML BAG IV SCH (10:17)
[2018-10-05] MEDS ORDERED: 0.9 % SODIUM CHLORIDE 250 ML IV ONE (16:26)
[2018-10-05] MEDS: LATANOPROST 0.005% OPTH DROP OP SCH (21:25)
[2018-10-06] MEDS: IPRATROPIUM/ALBUTEROL SULFATE 3 ML AMPUL.NEB NEB SCH ×3 (06:15→18:14)
[2018-10-06] MEDS: FUROSEMIDE 40 MG/4 ML VIAL IVP SCH ×2 (06:16→16:33)
[2018-10-06] MEDS: PANTOPRAZOLE SODIUM 80 MG in 0.9 % SODIUM CHLORIDE 50 ML IV SCH ×2 (06:17→16:47)
[2018-10-06] MEDS: LEVOFLOXACIN IN DEXTROSE 5 % 500 MG/100 ML BAG IV SCH (08:02)
[2018-10-06] MEDS: SALINE FLUSH 10 ML DISP.SYRIN IV SCH ×2 (08:02→20:49)
[2018-10-06] MEDS: LORazepam 0.5 MG TABLET PO PRN ×2 (08:03→19:16)
[2018-10-06] MEDS: methylPREDNISolone SOD SUCC 40 MG/ML VIAL IVP SCH ×2 (08:04→20:44)
[2018-10-06] MEDS: DOXAZOSIN MESYLATE 2 MG TABLET PO SCH (09:27)
[2018-10-06] MEDS: DOCUSATE SODIUM 100 MG CAPSULE PO SCH ×2 (09:28→20:43)
[2018-10-06] MEDS: DIGOXIN 125 MCG TABLET PO SCH (09:29)
[2018-10-06] MEDS: POLYETHYLENE GLYCOL 3350 17 GM POWD.PACK PO SCH (09:29)
[2018-10-06] MEDS: OSELTAMIVIR PHOSPHATE 75 MG CAPSULE PO SCH ×2 (09:30→20:44)
[2018-10-06] MEDS: FINASTERIDE 5 MG TABLET PO SCH (09:30)
[2018-10-06] MEDS: PROPRANOLOL HCL 20 MG TABLET PO SCH (09:33)
[2018-10-06] MEDS: AMIODARONE HCL 200 MG TABLET PO SCH (09:33)
--- NOTE | 2018-10-06 10:02 | Inpatient Progress Note ---
Subjective - Required Recertification Statement I anticipate X number of days because-include discharge plan: 4 - Review of Systems Events since last encounter: Camron continues to be on a NRB at 15 L and his saturations are staying about 90+%, however when he comes off of oxygen, he drops to the 60s or 70s, especially when he is getting a breathing treatment. His hemoglobin is stable. I will check another tomorrow am. General: Fatigue. Denies: Chills, Night Sweats HEENT: Denies: Head Aches Pulmonary: Dyspnea, Cough Cardiovascular: Denies: Chest Pain, Palpitations Gastrointestinal: Denies: Nausea, Vomiting Genitourinary: Denies: Dysuria Musculoskeletal: Denies: Neck Pain, Shoulder Pain Neurological: Weakness, Confusion Objective - Exam Vitals and I&O: Vital Signs Temp 97.2 F L 10/06/18 09:04 Pulse 72 10/06/18 09:04 Resp 28 H 10/06/18 09:04 BP 86/51 10/06/18 09:04 Pulse Ox 91 L 10/06/18 09:04 Intake & Output 10/05/18 10/05/18 10/06/18 11:59 23:59 11:59 Intake Total 680 640 260 Output Total 775 1800 300 Balance -95 -1160 -40 Intake: IV 200 Left Wrist 200 Oral 480 640 260 Output: Urine 775 1800 300 Other: Voiding Method Indwelling Catheter Indwelling Catheter # Bowel Movements 1 3 General: Oriented to Person HEENT: Atraumatic, PERRLA Neck: Supple, Other Lungs: Respiratory Distress Cardiovascular: Regular rate, Tachycardia Abdomen: Normal bowel sounds, Soft, No tenderness Extremities: No edema Skin: Normal, [place] Neurological: Normal speech, Generalized Weakness Psych/Mental Status: Mental status NL - Results Results: Laboratory Results WBC 18.80 K/ul (4.00-12.00) H 10/05/18 06:00 RBC 4.08 M/ul (3.90-5.20) 10/05/18 06:00 Hgb 9.4 g/dL (12.0-18.0) L 10/05/18 06:00 Hct 29.9 % (37.0-53.0) L 10/05/18 06:00 MCV 73.0 fl (80.0-100.0) L 10/05/18 06:00 MCH 23.1 pg (28.0-34.0) L 10/05/18 06:00 MCHC 31.6 g/dL (30.0-36.0) 10/05/18 06:00 RDW 20.1 % (11.3-14.3) H 10/05/18 06:00 Plt Count 154 K/mm3 (130-400) 10/05/18 06:00 Neut % (Auto) 86.9 % (39.0-79.0) H 10/05/18 06:00 Lymph % (Auto) 7.4 % (16.0-50.0) L 10/05/18 06:00 [place] % (Auto) 4.2 % (0.0-11.0) 10/05/18 06:00 Eos % (Auto) 1.0 % (0.0-6.8) 10/05/18 06:00 Baso % (Auto) 0.5 (0.0-1.5) 10/05/18 06:00 Neut # (Auto) 16.3 # k/uL (1.4-7.7) H 10/05/18 06:00 Lymph # (Auto) 1.4 # k/uL (0.6-4.0) 10/05/18 06:00 [place] # (Auto) 0.8 # k/uL (0.0-0.9) 10/05/18 06:00 Eos # (Auto) 0.2 # k/uL (0.0-0.6) 10/05/18 06:00 Baso # (Auto) 0.1 # k/uL (0.0-0.5) 10/05/18 06:00 Hypochromasia 2+ (NEGATIVE) H 10/05/18 06:00 Anisocytosis 3+ (NEGATIVE) H 10/05/18 06:00 Tear Drop Cells 2+ (NEGATIVE) H 10/05/18 06:00 Ovalocytes 2+ (NEGATIVE) H 10/05/18 06:00 Schistocytes 1+ (NEGATIVE) H 10/05/18 06:00 Sodium 133 mmol/L (136-145) L 10/05/18 06:00 Potassium 3.4 mmol/L (3.5-5.1) L 10/05/18 06:00 Chloride 97 mmol/L (98-107) L 10/05/18 06:00 Carbon Dioxide 33 mmol/L (22-30) H 10/05/18 06:00 BUN 38 mg/dL (9-20) H 10/05/18 06:00 Creatinine 1.16 mg/dL (0.66-1.25) 10/05/18 06:00 Estimated Creat Clear 58 10/05/18 06:00 Est GFR ( Amer) > 60 (60-) 10/05/18 06:00 Est GFR (Non-Af Amer) > 60 (60-) 10/05/18 06:00 Glucose 104 mg/dL (74-106) 10/05/18 06:00 Lactate 1.6 U/L (0.7-2.1) 09/30/18 09:02 Calcium 7.5 mg/dL (8.4-10.2) L 10/05/18 06:00 Iron (send out) See scanned report 10/01/18 Unknown Total Bilirubin 1.0 mg/dL (0.2-1.3) 10/05/18 06:00 AST 91 U/L (15-46) H 10/05/18 06:00 ALT 72 U/L (13-69) H 10/05/18 06:00 Alkaline Phosphatase 145 U/L (38-126) H 10/05/18 06:00 NT-Pro-B Natriuret Pep 7473.4 pg/mL (15.0-450.0) H 10/05/18 06:00 Total Protein 5.6 g/dL (6.3-8.2) L 10/05/18 06:00 Albumin 2.3 g/dL (3.5-5.0) L 10/05/18 06:00 Urine Color Yellow (YELLOW) 09/30/18 09:20 Urine Appearance Cloudy (CLEAR) 09/30/18 09:20 Urine pH 6.0 (5.0 - 8.0) 09/30/18 09:20 Ur Specific [place] 1.025 (1.010-1.030) 09/30/18 09:20 Urine Protein 1+ mg/dL (NEGATIVE) H 09/30/18 09:20 Urine Ketones Negative mg/dL (NEGATIVE) 09/30/18 09:20 Urine Occult Blood 2+ (NEGATIVE) H 09/30/18 09:20 Urine Nitrite Negative (NEGATIVE) 09/30/18 09:20 Urine Bilirubin 1+ (NEGATIVE) H 09/30/18 09:20 Urine Urobilinogen 1.0 Eu (0.2-1.0) 09/30/18 09:20 Ur Leukocyte Esterase Negative (NEGATIVE) 09/30/18 09:20 Urine Glucose Negative mg/dL (NEGATIVE) 09/30/18 09:20 Occult Blood (ICT) #2 Negative (NEGATIVE) 10/05/18 22:00 Stool Guaiac Test Positive (NEGATIVE) H 09/30/18 18:45 Influenza Type A Ag Negative (NEGATIVE) 09/30/18 09:20 Influenza Type B Ag Positive (NEGATIVE) H 09/30/18 09:20 Assessment/Plan - Assessment/Plan (1) Anemia Status: Acute Current Visit: Yes Qualifiers: Anemia type: unspecified type Qualified Code(s): D64.9 - Anemia, unspecified Assessment: Stable Plan: Hold anticoagulation Follow Hgb (ordered for am) (2) CHF (congestive heart failure) Status: Acute Current Visit: Yes Qualifiers: Heart failure type: systolic Heart failure chronicity: chronic Qualified Code(s): I50.22 - Chronic systolic (congestive) heart failure Assessment: Continue diuresis, however needed to do so cautiously due to hypotension (3) GI bleeding Status: Acute Current Visit: Yes Qualifiers: GI bleed type/associated pathology: unspecified gastrointestinal hemorrhage type Qualified Code(s): K92.2 - Gastrointestinal hemorrhage, unspecified Assessment: Follow Hgb (4) Influenza B Status: Acute Current Visit: Yes Assessment: Has finished oseltamavir (5) Left lower lobe pneumonia Status: Acute Current Visit: Yes Qualifiers: Pneumonia type: due to unspecified organism Qualified Code(s): J18.1 - Lobar pneumonia, unspecified organism Assessment: Continue current antibiotic therapy (6) Atrial fibrillation Status: Chronic Current Visit: Yes Qualifiers: Atrial fibrillation type: paroxysmal Qualified Code(s): I48.0 - Paroxysmal atrial fibrillation Assessment: Chronic, rate is well controlled (70s)
[2018-10-06] MEDS ORDERED: ASPIRIN 325 MG TABLET ONE (13:02)
[2018-10-06] MEDS ORDERED: ASPIRIN 325 MG TABLET PO ONE (13:09)
[2018-10-06] MEDS ORDERED: MORPHINE SULFATE 4 MG/ML VIAL ONE ×2 (13:12→20:02)
[2018-10-06] MEDS ORDERED: 0.9 % SODIUM CHLORIDE 250 ML IV ONE ×2 (13:27→16:51)
[2018-10-06] MEDS: MORPHINE SULFATE 2 MG/ML VIAL IV PRN ×2 (13:58→20:44)
[2018-10-06] MEDS: LEVOFLOXACIN IN DEXTROSE 5 % 250 MG/50 ML BAG IV SCH (14:33)
[2018-10-06] MEDS: LATANOPROST 0.005% OPTH DROP OP SCH (20:44)
[2018-10-07] MEDS: IPRATROPIUM/ALBUTEROL SULFATE 3 ML AMPUL.NEB NEB SCH ×4 (00:16→17:26)
[2018-10-07] MEDS: MORPHINE SULFATE 2 MG/ML VIAL IV PRN ×3 (00:16→17:21)
[2018-10-07] MEDS: PANTOPRAZOLE SODIUM 80 MG in 0.9 % SODIUM CHLORIDE 50 ML IV SCH ×2 (07:05→17:23)
[2018-10-07] MEDS: FUROSEMIDE 40 MG/4 ML VIAL IVP SCH ×2 (07:06→15:12)
[2018-10-07 07:11] LABS: eGFR (Non-African) > 60
[2018-10-07 07:12] LABS: MEAN CORPUSCULAR HEMOGLOBIN 23.5 pg (28.0-34.0)
[2018-10-07] MEDS: LEVOFLOXACIN IN DEXTROSE 5 % 500 MG/100 ML BAG IV SCH (09:22)
[2018-10-07] MEDS: LEVOFLOXACIN IN DEXTROSE 5 % 250 MG/50 ML BAG IV SCH (09:22)
[2018-10-07] MEDS: DOCUSATE SODIUM 100 MG CAPSULE PO SCH ×2 (09:22→21:02)
[2018-10-07] MEDS: DOXAZOSIN MESYLATE 2 MG TABLET PO SCH (09:22)
[2018-10-07] MEDS: PROPRANOLOL HCL 20 MG TABLET PO SCH (09:23)
[2018-10-07] MEDS: DIGOXIN 125 MCG TABLET PO SCH (09:23)
[2018-10-07] MEDS: methylPREDNISolone SOD SUCC 40 MG/ML VIAL IVP SCH ×2 (09:26→21:04)
[2018-10-07] MEDS: AMIODARONE HCL 200 MG TABLET PO SCH (09:27)
[2018-10-07] MEDS: FINASTERIDE 5 MG TABLET PO SCH (09:28)
[2018-10-07] MEDS: OSELTAMIVIR PHOSPHATE 75 MG CAPSULE PO SCH ×2 (09:29→21:03)
[2018-10-07] MEDS ORDERED: MORPHINE SULFATE 4 MG/ML VIAL ONE ×2 (09:31→15:19)
[2018-10-07] MEDS: SALINE FLUSH 10 ML DISP.SYRIN IV SCH ×2 (10:14→21:02)
[2018-10-07] MEDS: POLYETHYLENE GLYCOL 3350 17 GM POWD.PACK PO SCH (10:29)
--- NOTE | 2018-10-07 11:17 | Inpatient Progress Note ---
Subjective - Required Recertification Statement I anticipate X number of days because-include discharge plan: 2 - Review of Systems Events since last encounter: Camron is still very weak with minimal movement. He has some chest pain which has now resolved. He is eating very little. His HgB has dropped to 8.7 today. His renal function is fairly stable, however his blood pressure remains very low. General: Denies: Chills HEENT: Denies: Head Aches Pulmonary: Dyspnea, Cough Cardiovascular: Chest Pain Gastrointestinal: Denies: Nausea, Vomiting Genitourinary: Denies: Dysuria Musculoskeletal: Denies: Neck Pain Neurological: Weakness. Denies: Confusion Objective - Exam Vitals and I&O: Vital Signs Temp 97.6 F 10/07/18 10:01 Pulse 70 10/07/18 10:01 Resp 24 10/07/18 10:01 BP 90/48 10/07/18 10:01 Pulse Ox 88 L 10/07/18 10:01 Intake & Output 10/06/18 10/06/18 10/07/18 11:59 23:59 11:59 Intake Total 260 350 50 Output Total 300 1650 250 Balance -40 -1300 -200 Intake: Oral 260 350 50 Output: Urine 300 1650 250 Other: Voiding Method Indwelling Catheter Indwelling Catheter Indwelling Catheter # Bowel Movements 3 0 General: Alert, Oriented to Person, Moderate distress (respiratory) HEENT: Atraumatic, PERRLA Neck: Other (Decreased ROM) Lungs: Rhonchi Cardiovascular: Regular rate Abdomen: Normal bowel sounds, Soft, No tenderness Extremities: Other (edema is improved) Skin: Normal, [place] Neurological: Normal speech (dyspnea limits ability to speak) Psych/Mental Status: Mental status NL - Results Results: Laboratory Results WBC 14.80 K/ul (4.00-12.00) H 10/07/18 06:30 RBC 3.69 M/ul (3.90-5.20) L 10/07/18 06:30 Hgb 8.7 g/dL (12.0-18.0) L 10/07/18 06:30 Hct 27.2 % (37.0-53.0) L 10/07/18 06:30 MCV 74.0 fl (80.0-100.0) L 10/07/18 06:30 MCH 23.5 pg (28.0-34.0) L 10/07/18 06:30 MCHC 32.0 g/dL (30.0-36.0) 10/07/18 06:30 RDW 19.3 % (11.3-14.3) H 10/07/18 06:30 Plt Count 86 K/mm3 (130-400) L 10/07/18 06:30 Neut % (Auto) 86.9 % (39.0-79.0) H 10/05/18 06:00 Lymph % (Auto) 7.4 % (16.0-50.0) L 10/05/18 06:00 [place] % (Auto) 4.2 % (0.0-11.0) 10/05/18 06:00 Eos % (Auto) 1.0 % (0.0-6.8) 10/05/18 06:00 Baso % (Auto) 0.5 (0.0-1.5) 10/05/18 06:00 Neut # (Auto) 16.3 # k/uL (1.4-7.7) H 10/05/18 06:00 Lymph # (Auto) 1.4 # k/uL (0.6-4.0) 10/05/18 06:00 [place] # (Auto) 0.8 # k/uL (0.0-0.9) 10/05/18 06:00 Eos # (Auto) 0.2 # k/uL (0.0-0.6) 10/05/18 06:00 Baso # (Auto) 0.1 # k/uL (0.0-0.5) 10/05/18 06:00 Hypochromasia 2+ (NEGATIVE) H 10/05/18 06:00 Anisocytosis 3+ (NEGATIVE) H 10/05/18 06:00 Tear Drop Cells 2+ (NEGATIVE) H 10/05/18 06:00 Ovalocytes 2+ (NEGATIVE) H 10/05/18 06:00 Schistocytes 1+ (NEGATIVE) H 10/05/18 06:00 Sodium 135 mmol/L (136-145) L 10/07/18 06:30 Potassium 3.2 mmol/L (3.5-5.1) L 10/07/18 06:30 Chloride 96 mmol/L (98-107) L 10/07/18 06:30 Carbon Dioxide 35 mmol/L (22-30) H 10/07/18 06:30 BUN 37 mg/dL (9-20) H 10/07/18 06:30 Creatinine 0.99 mg/dL (0.66-1.25) 10/07/18 06:30 Estimated Creat Clear 68 10/07/18 06:30 Est GFR ( Amer) > 60 (60-) 10/07/18 06:30 Est GFR (Non-Af Amer) > 60 (60-) 10/07/18 06:30 Glucose 90 mg/dL (74-106) 10/07/18 06:30 Lactate 1.6 U/L (0.7-2.1) 09/30/18 09:02 Calcium 7.0 mg/dL (8.4-10.2) L 10/07/18 06:30 Iron (send out) See scanned report 10/01/18 Unknown Total Bilirubin 0.8 mg/dL (0.2-1.3) 10/07/18 06:30 AST 91 U/L (15-46) H 10/07/18 06:30 ALT 74 U/L (13-69) H 10/07/18 06:30 Alkaline Phosphatase 139 U/L (38-126) H 10/07/18 06:30 Troponin I 0.14 ng/mL (0.03-0.06) H 10/06/18 17:15 NT-Pro-B Natriuret Pep 7473.4 pg/mL (15.0-450.0) H 10/05/18 06:00 Total Protein 5.1 g/dL (6.3-8.2) L 10/07/18 06:30 Albumin 2.1 g/dL (3.5-5.0) L 10/07/18 06:30 Urine Color Yellow (YELLOW) 09/30/18 09:20 Urine Appearance Cloudy (CLEAR) 09/30/18 09:20 Urine pH 6.0 (5.0 - 8.0) 09/30/18 09:20 Ur Specific [place] 1.025 (1.010-1.030) 09/30/18 09:20 Urine Protein 1+ mg/dL (NEGATIVE) H 09/30/18 09:20 Urine Ketones Negative mg/dL (NEGATIVE) 09/30/18 09:20 Urine Occult Blood 2+ (NEGATIVE) H 09/30/18 09:20 Urine Nitrite Negative (NEGATIVE) 09/30/18 09:20 Urine Bilirubin 1+ (NEGATIVE) H 09/30/18 09:20 Urine Urobilinogen 1.0 Eu (0.2-1.0) 09/30/18 09:20 Ur Leukocyte Esterase Negative (NEGATIVE) 09/30/18 09:20 Urine Glucose Negative mg/dL (NEGATIVE) 09/30/18 09:20 Occult Blood (ICT) #2 Negative (NEGATIVE) 10/05/18 22:00 Stool Guaiac Test Positive (NEGATIVE) H 09/30/18 18:45 Influenza Type A Ag Negative (NEGATIVE) 09/30/18 09:20 Influenza Type B Ag Positive (NEGATIVE) H 09/30/18 09:20 Assessment/Plan - Assessment/Plan (1) Anemia Status: Acute Current Visit: Yes Qualifiers: Anemia type: unspecified type Qualified Code(s): D64.9 - Anemia, unspecified Assessment: HgB is 8.7 today (2) CHF (congestive heart failure) Status: Acute Current Visit: Yes Qualifiers: Heart failure type: systolic Heart failure chronicity: chronic Qualified Code(s): I50.22 - Chronic systolic (congestive) heart failure Assessment: End stage (3) GI bleeding Status: Acute Current Visit: Yes Qualifiers: GI bleed type/associated pathology: unspecified gastrointestinal hemorrhage type Qualified Code(s): K92.2 - Gastrointestinal hemorrhage, unspecified Assessment: With continued dropping of hemoglobin (4) Influenza B Status: Acute Current Visit: Yes (5) Left lower lobe pneumonia Status: Acute Current Visit: Yes Qualifiers: Pneumonia type: due to unspecified organism Qualified Code(s): J18.1 - Lobar pneumonia, unspecified organism Assessment: Finish antibiotics (6) Atrial fibrillation Status: Chronic Current Visit: Yes Qualifiers: Atrial fibrillation type: paroxysmal Qualified Code(s): I48.0 - Paroxysmal atrial fibrillation Plan: rate is well controlled Off of anticoagulation due to suspected GI bleed.
[2018-10-07] MEDS: LATANOPROST 0.005% OPTH DROP OP SCH (21:04)
[2018-10-08] MEDS ORDERED: MORPHINE SULFATE 4 MG/ML VIAL ONE (01:52)
[2018-10-08] MEDS: MORPHINE SULFATE 2 MG/ML VIAL IV PRN ×2 (01:59→04:50)
[2018-10-08] MEDS: IPRATROPIUM/ALBUTEROL SULFATE 3 ML AMPUL.NEB NEB SCH ×2 (01:59→06:38)
[2018-10-08] MEDS: LORazepam 0.5 MG TABLET PO PRN (04:59)
[2018-10-08] MEDS: FUROSEMIDE 40 MG/4 ML VIAL IVP SCH (06:59)
[2018-10-08] MEDS: PANTOPRAZOLE SODIUM 80 MG in 0.9 % SODIUM CHLORIDE 50 ML IV SCH (06:59)
[2018-10-08] MEDS: DOXAZOSIN MESYLATE 2 MG TABLET PO SCH (08:53)
[2018-10-08] MEDS: DIGOXIN 125 MCG TABLET PO SCH (08:54)
[2018-10-08] MEDS: DOCUSATE SODIUM 100 MG CAPSULE PO SCH (08:54)
[2018-10-08] MEDS: PROPRANOLOL HCL 20 MG TABLET PO SCH (08:54)
[2018-10-08] MEDS: AMIODARONE HCL 200 MG TABLET PO SCH (08:55)
[2018-10-08] MEDS: OSELTAMIVIR PHOSPHATE 75 MG CAPSULE PO SCH (08:55)
[2018-10-08] MEDS: FINASTERIDE 5 MG TABLET PO SCH (08:55)
[2018-10-08] MEDS: SALINE FLUSH 10 ML DISP.SYRIN IV SCH (09:00)
[2018-10-08] MEDS: POLYETHYLENE GLYCOL 3350 17 GM POWD.PACK PO SCH (09:00)
--- NOTE | 2018-10-08 10:21 | Discharge Summary ---
Discharge Summary - Discharge Sumary Date: 10/08/18 History of Present Illness: Admission date 09/30/18 Discharge Date 10/08/18 Patient is and 83-year-old white male who states he is not been doing well for some time. Patient did is been having increasing breathing difficulties also does not have a history of COPD or asthma. Over the last 3 to 4 days breathing has become a lot worse. Patient started developed some congestion and cough. Patient was noted to have a fever associated with some chills. Patient subsequently seen in the ED. In the ED patient was found to have influenza B with probable exacerbation of COPD with bronchitis. Patient is also noted to be anemic with the hemoglobin of 7.9. He stool guaic done on admission on the floor was positive. Patient does have a history of atrial fibrillation and has been on eloquence for anticoagulation therapy. Patient also has osteoarthritis and has been taking nonsteroidal anti-inflammatory medication for this. Patient was admitted to the hospital for further care and evaluation. Condition at Discharge: Guarded Home Medications: Ambulatory Orders Medication Instructions Recorded Polyethylene Glycol 3350 [Miralax] 17 gm PO D 10/01/17 Acetaminophen [Tylenol] 650 mg PO Q6H PRN 09/30/18 Ibuprofen [Ibu] 400 mg PO TID 09/30/18 Latanoprost/Pf [Latanoprost 0.005% 1 drop OP HS 09/30/18 Eye Drop] Mag Hydrox/Aluminum Hyd/Simeth 30 ml PO D PRN 09/30/18 [Mylanta] Magnesium Hydroxide [Milk of 2,400 mg PO D PRN 09/30/18 Magnesia] Nitroglycerin [Nitrostat] 0.3 mg SL Q5M PRN 09/30/18 Consultations this Visit: None Procedures this Visit: None Allergies/Adverse Reactions: Allergies Allergy/AdvReac Type Severity Reaction Status Date / Time No Known Drug Allergies Allergy Verified 09/30/18 11:12 Patient Problems: Current Active Problems Problem Status Onset Anemia Acute BPH (benign prostatic hyperplasia) Acute CAD (coronary artery disease) Acute CHF (congestive heart failure) Acute Elevated LFTs Acute GI bleeding Acute Influenza B Acute Left lower lobe pneumonia Acute PVD (peripheral vascular disease) Acute Right lower lobe pneumonia Acute Atrial fibrillation Chronic Generalized OA Chronic Discharge Summary: Patient was admitted and transfused due to his anemia. In addition, he was continued on levofloxacin and maximal nebulizer treatments. Depsite maximal therapy, he continued to decline. He was transferred back to [facility] on 10/08 on hospice with [facility].
[2018-10-08 14:33] VITALS: BP 100/52
== END 2018-10-08 10:45 | DRG 194 ==
LOC: ED 08:56 → SOUTH 12:10
PROVIDERS: ADMIT Family Medicine; ATTEND Family Medicine
DX: J18.1 Lobar pneumonia, unspecified organism (principal); K92.2 Gastrointestinal hemorrhage, unspecified; J10.1 Influenza due to other identified influenza virus with other respiratory manifestations; D64.9 Anemia, unspecified; I25.10 Atherosclerotic heart disease of native coronary artery without angina pectoris; I48.0 Paroxysmal atrial fibrillation; I50.9 Heart failure, unspecified; R94.5 Abnormal results of liver function studies; N40.1 Benign prostatic hyperplasia with lower urinary tract symptoms; R07.9 Chest pain, unspecified; R04.0 Epistaxis; F41.9 Anxiety disorder, unspecified; Z79.01 Long term (current) use of anticoagulants
CPT/HCPCS: 36415; 36430; 51701; 71045; 80053; 81002; 82270; 83540; 83605; 83880; 84484; 85025; 85027; 86885; 86900; 86920; 87040; 87400; 93005; 94640; 94760; 96365; 99284; 99285; A9270; J1940; J1956; J2270; J2920; J2930; J7030; J7050; Q0163; 80162; 99223; 99231; 99232; 99238; P9040; J1030